=== PATIENT | male | born 1970 | race Caucasian/White ===

== ENCOUNTER 2017-05-13 02:43 | Emergency (ER) | payer OTHER ==
[2017-05-13] MEDS ORDERED: Nitrostat 0.4 MG (ED) SL ONE ×2 (02:56→03:01)
[2017-05-13] MEDS ORDERED: BABY ASPIRIN 81 MG CHEW PO ONE (02:56)
[2017-05-13] MEDS ORDERED: Ntg 0.2MG/Ml in D5W GLASS*** 250 ML IV PRN (02:56)
[2017-05-13] MEDS ORDERED: Sodium Chloride 0.9% 1000 ML 1,000 ML IV SCH (03:00)
--- NOTE | 2017-05-13 03:00 | ERPHSYRPT ---
- History of Present Illness Time Seen by Provider: 05/13/17 02:54 Historian: patient, family Exam Limitations: no limitations Patient Subjective Stated Complaint: Pt sts CP left side of chest radiating into throat with left arm numbness since 199. Sts that he has had "pressure" waxing and waning from 12/21 to 05/20. Sts diaphoresis and shortness of breath with pain. Sts vomiting x 1. Triage Nursing Assessment: Pt alert, oriented, answers all questions appropriately. Skin pale, sallow. Ambulatory to room. 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 Physician History: pt is 46 year old male with onset CP radiating to neck and left arm since 199 ; vomited x 1 prior suspected CAD but workup not completed yet; Timing/Duration: today Activities at Onset: none Location: substernal Chest Pain Radiation: neck, arm Severity of Pain-Max: moderate Severity of Pain-Current: moderate Modifying Factors: Improves With: nothing Nitro Today/Relief: 0.4 mg x 1, provided by ED Aspirin Treatment Today: 81 mg x 4, provided by ED Allergies/Adverse Reactions: Influenza Virus Vaccines Allergy (Verified 05/13/17 02:50) [place] nuts Allergy (Uncoded 05/13/17 02:50) Home Medications: Budesonide/Formoterol Fumarate [Symbicort 160-4.5 Mcg Inhaler] 10.2 gm IH BID [History] Fluticasone/Vilanterol [Breo Ellipta 100-25 Mcg INH] 1 each IH DAILY 02/22/17 [ History] Omeprazole [Prilosec] 40 mg PO DAILY 02/22/17 [History] Carbidopa/Levodopa [Carbidopa-Levo 25-100 Tab] 1 each PO TID 05/13/17 [History] Gabapentin 800 mg PO TID 05/13/17 [History] Hydrocodone Bit/Acetaminophen [[place] 5-325 Tablet] 1 each PO 05/13/17 [History] Tizanidine HCl 4 mg PO HS 05/13/17 [History] Zolpidem Tartrate [Ambien] 5 mg PO HS 05/13/17 [History] Zonisamide 100 mg PO BID 05/13/17 [History] Hx Tetanus, Diphtheria Vaccination/Date Given: Yes Hx Influenza Vaccination/Date Given: No Hx Pneumococcal Vaccination/Date Given: No - Review of Systems Constitutional: No Fever, No Chills Eyes: No Symptoms Ears, Nose, & Throat: No Symptoms Respiratory: No Cough, No Dyspnea Cardiac: Chest Pain, No Edema, No Syncope Abdominal/Gastrointestinal: Nausea, Vomiting, No Abdominal Pain, No Diarrhea Genitourinary Symptoms: No Dysuria Musculoskeletal: No Back Pain, No Neck Pain Skin: No Rash Neurological: No Dizziness, No Focal Weakness, No Sensory Changes Psychological: No Symptoms Endocrine: No Symptoms All Other Systems: Reviewed and Negative - Past Medical History Pertinent Past Medical History: No Neurological History: No Pertinent History ENT History: No Pertinent History Cardiac History: No Pertinent History Respiratory History: Bronchitis, Pneumonia Endocrine Medical History: No Pertinent History Musculoskeletal History: No Pertinent History GI Medical History: GERD History: No Pertinent History Psycho-Social History: No Pertinent History Male Reproductive Disorders: No Pertinent History - Past Surgical History Past Surgical History: No Other Surgical History: I and D's from cysts on posterior torso. - Social History Smoking Status: Current every day smoker How long have you smoked: 25 Exposure to second hand smoke: No Drug Use: none Patient Lives Alone: No - Nursing Vital Signs Nursing Vital Signs: Initial Vital Signs Pulse Rate 72 Respiratory Rate 18 Blood Pressure [Right Arm] 124/79 Pain Intensity 2 - Physical Exam General Appearance: moderate distress, alert Eye Exam: PERRL/EOMI, eyes nml inspection Ears, Nose, Throat Exam: normal ENT inspection, moist mucous membranes Neck Exam: normal inspection, non-tender, supple, full range of motion Respiratory Exam: normal breath sounds, lungs clear, No respiratory distress Cardiovascular Exam: regular rate/rhythm, normal heart sounds Gastrointestinal/Abdomen Exam: soft, No tenderness, No mass Back Exam: normal inspection, No CVA tenderness, No vertebral tenderness Extremity Exam: normal inspection, normal range of motion Neurologic Exam: alert, oriented x 3, cooperative, normal mood/affect, sensation nml, No motor deficits Skin Exam: normal color, warm, dry SpO2 Interpretation: normal SpO2: 96 Oxygen Delivery: Room Air - Course Nursing assessment & vital signs reviewed: Yes EKG Interpreted by Me: Sinus Rhythm, ST Elev - Progress Progress: improved Air Movement: good Progress Note: 05/13/17 03:12 pressure dropped to 60 and had to have IVF bolus NS x2 ; started dopamine and gave ASA and Effient 60 mg ; regional alert for STEMI ALS called hosp accepted at [facility] BP im,proved to 90 Blood Culture(s) Obtained: No Antibiotics given: No (dr coleman) Discussed with : Other Will see patient in: hospital (full admit) Counseled pt/family regarding: lab results, diagnosis, need for follow-up, rad results - Departure Time of Disposition: 03:21 Departure Disposition: Transfer Clinical Impression: STEMI (ST elevation myocardial infarction) Condition: Critical Critical Care Time: Yes Critical Care Time(excluding separately billable procedures): 30-74 minutes
[2017-05-13] MEDS ORDERED: Ntg 0.2MG/Ml in D5W GLASS*** 0 ML IV ONE (03:01)
[2017-05-13] MEDS ORDERED: Sodium Chloride 0.9% 1000 ML 1,000 ML ONE ×2 (03:01→03:09)
[2017-05-13] MEDS ORDERED: Sodium Chloride 0.9% 1000 ML 1,000 ML IV STA ×2 (03:03→03:07)
[2017-05-13] MEDS ORDERED: DOBUTREX 500 MG/D5W 250 ML 250 ML IV PRN (03:04)
[2017-05-13 03:05] LABS: BASOPHIL % 0.5 % (0.0-0.4); Eosinophil % 2.2 % (0.00-5.0); Granulocytes % 62.4 % (36.0-66.0); Lymphocytes % 27.8 % (24.0-44.0); Mean Cell Volume 87.6 fl (78-100); Mean Corpuscular Hemoglobin 30.3 pg (26-32); Mean Platelet Volume 9.4 fl (6-9.5); Monocytes % 7.1 % (0.0-12.0); Platelet Count 245 K/mm3 (150-450); Red Blood Count 5.47 M/mm3 (4.1-5.6); Red Cell Distribution Width 14.6 % (11.5-14.0); White Blood Count 15.6 K/mm3 (4.0-10.5)
[2017-05-13] MEDS ORDERED: Effient 10 MG TABLET PO ONE (03:07)
[2017-05-13] MEDS ORDERED: Effient 10 MG TABLET ONE (03:09)
[2017-05-13 03:22] LABS: INR 1.06 (0.8-3.0)
[2017-05-13] MEDS ORDERED: Zofran 4 MG/2 ML VIAL ONE (03:23)
[2017-05-13] MEDS ORDERED: Zofran 4 MG/2 ML VIAL IV ONE (03:23)
[2017-05-13 03:24] LABS: PTT 32.5 SECONDS (24.1-36.1)
[2017-05-13 03:26] LABS: ALBUMIN 3.9 g/dL (3.4-5.0); ALKALINE PHOSPHATASE 141 U/L (46-116); ANION GAP 13.5 MEQ/L (5-15); BLOOD UREA NITROGEN 7 mg/dL (9-20); CHLORIDE 101 mEq/L (98-107); Carbon Dioxide 26.3 mEq/L (21-32); Glucose 122 MG/DL (70-110); Potassium 3.1 mEq/L (3.5-5.1); SGOT/AST 20 U/L (15-37); SGPT/ALT 17 U/L (12-78); SODIUM 138 mEq/L (136-145); Total Protein 8.1 gm/dL (6.4-8.2)
[2017-05-13 03:27] VITALS: BP 103/76; PULSE 71; O2SAT 95
[2017-05-13] MEDS ORDERED: BABY ASPIRIN 81 MG CHEW ONE (04:05)
--- NOTE | 2017-05-13 09:06 | XRAY ---
Indication: Chest pain. Comparison: May 01, 2016. Portable chest remains clear. Heart and mediastinal structures within normal limits for AP portable technique. Bony thorax intact again with minimal degenerative changes. Impression: Stable nonacute chest.
== END 2017-05-13 03:26 | disposition short-term general hospital (02) ==
LOC: ED 02:43
DX: I21.3 ST elevation (STEMI) myocardial infarction of unspecified site (principal); R07.9 Chest pain, unspecified; R11.10 Vomiting, unspecified
CPT/HCPCS: 36000; 36415; 71010; 80053; 82550; 83880; 84484; 85025; 85610; 85730; 93005; 93041; 96360; 96365; 96374; 99285; J2405; A9270-GY

== ENCOUNTER 2018-10-08 12:53 | Day surgery (SDC) | payer OTHER ==
[2018-10-08] MEDS ORDERED: Marcaine 0.5% SDV 10 ML IJ ONE (12:54)
[2018-10-08] MEDS ORDERED: Xylocaine 1% Vial 30 ML PF IJ ONE (12:54)
[2018-10-08] MEDS ORDERED: Depo-Medrol 40 MG/ML IM ONE (12:54)
--- NOTE | 2018-10-08 16:04 | XRAY ---
7 seconds fluoroscopy time in surgery for left knee injection.
--- NOTE | 2018-10-08 16:04 | XRAY ---
17 seconds fluoroscopy time in surgery for right knee injection.
--- NOTE | 2018-10-09 05:04 | XRAY ---
Exam: C-arm images of the right knee for therapeutic injection. Findings: 17 seconds of intraoperative fluoroscopy time was utilized. 3 frontal C-arm images of the right knee were obtained. A needle is seen projected toward the mid aspect of the right knee joint. Some contrast has been injected. Correlate with therapeutic procedure.
--- NOTE | 2018-10-09 05:06 | XRAY ---
Exam: C-arm images of the left knee for therapeutic injection. Findings: 7 seconds of intraoperative fluoroscopy time was utilized. 2 frontal C-arm images of the left knee were obtained. A spinal needle is seen directed toward the mid aspect of the left knee joint. Some contrast media has been injected. Correlate with therapeutic procedure.
== END 2018-10-08 15:20 | disposition home or self-care (01) ==
LOC: SDC-PAIN 12:53
PROVIDERS: ATTEND Psychiatry & Neurology Pain Medicine
DX: M17.0 Bilateral primary osteoarthritis of knee (principal)
CPT/HCPCS: 20610; 73560; 77002; J1030; J2001; Q9967

== ENCOUNTER 2021-05-27 14:46 | Emergency (ER) | payer MEDICARE ==
[2021-05-27] MEDS ORDERED: Zofran 4 MG/2 ML VIAL IV ONE (15:09)
[2021-05-27] MEDS ORDERED: Nitrostat 0.4 MG (ED) SL ONE (15:09)
[2021-05-27] MEDS ORDERED: BABY ASPIRIN 81 MG CHEW PO ONE (15:09)
[2021-05-27] MEDS ORDERED: Zofran 4 MG/2 ML VIAL ONE (15:14)
--- NOTE | 2021-05-27 15:22 | ERPHSYRPT ---
- History of Present Illness Time Seen by Provider: 05/27/21 15:05 Historian: patient, family Patient Subjective Stated Complaint: chest pain onset Triage Nursing Assessment: pt to ED c/o CP onset . pt states his grandson came from school with [place] last week and he and his have both felt bad since then. pt states chest pain and SOB have been intermittent since then. 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 heart sounds clear. lung sounds crackles at bases bilaterally. Physician History: This is a 50-year-old white male patient of Dr. 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 Today he felt as though his lungs were being squeezed. There has been flulike symptoms in the family home this past week. Patient sees Dr. Macario for chronic pain issues. Patient did take a 10/25 [place] because of his chest pain earlier today and he presents with chest pain rated 3 out of 10. Patient has a history of coronary artery disease and had an acute myocardial infarction approximately 4 years ago. Patient continues to smoke. He gets recurrent bronchitis. He does not wear home oxygen. Timing/Duration: day(s) (2) Activities at Onset: activity Quality: sharpness, stabbing Location: substernal Chest Pain Radiation: no radiation Severity of Pain-Max: moderate Severity of Pain-Current: mild Modifying Factors: Improves With: nothing Associated Symptoms: shortness of breath, cough Nitro Today/Relief: no nitro taken today Aspirin Treatment Today: 81 mg x 4, provided by ED Allergies/Adverse Reactions: Influenza Virus Vaccines Allergy (Verified 05/27/21 15:01) [place] nuts Allergy (Uncoded 05/27/21 15:01) Home Medications: Budesonide/Formoterol Fumarate [Symbicort 160-4.5 Mcg Inhaler] 10.2 gm IH BID 02/22/17 [History] Fluticasone/Vilanterol [Breo Ellipta 100-25 Mcg INH] 1 each IH DAILY 02/22/17 [History] Omeprazole [Prilosec] 40 mg PO DAILY 02/22/17 [History] Carbidopa/Levodopa [Carbidopa-Levo 25-100 Tab] 1 each PO QID 05/13/17 [History] Gabapentin 800 mg PO TID 05/13/17 [History] Hydrocodone Bit/Acetaminophen [[place] 5-325 Tablet] 1 each PO Q6HPRN PRN 05/13/17 [History] Tizanidine HCl 4 mg PO HS 05/13/17 [History] Zolpidem Tartrate [Ambien] 5 mg PO HS 05/13/17 [History] Zonisamide 150 mg PO BID 05/13/17 [History] Aspirin 81 mg PO DAILY 07/29/17 [History] Atorvastatin Calcium 80 mg PO DAILY 07/29/17 [History] Carvedilol 3.125 mg [Coreg 3.125 MG] 3.125 mg PO BID 07/29/17 [History] Ticagrelor [Brilinta] 90 mg PO BID 07/29/17 [History] Hx Tetanus, Diphtheria Vaccination/Date Given: Yes Hx Influenza Vaccination/Date Given: No Hx Pneumococcal Vaccination/Date Given: No Immunizations Up to Date: No Travel Risk - International Travel Have you traveled outside of the country in past 3 weeks: No - Coronavirus Screening Are you exhibiting any of the following symptoms?: Yes Symptoms: Cough: New Onset, Vomiting/Diarrhea Close contact with a COVID-19 positive Pt in past 14-21 Days: No - Vaccine Status Have you recieved a Covid-19 vaccination: No - Review of Systems Constitutional: Weakness (Mild) Eyes: No Symptoms Ears, Nose, & Throat: No Symptoms Respiratory: Cough, Dyspnea (Mild) Cardiac: Chest Pain Abdominal/Gastrointestinal: No Symptoms Genitourinary Symptoms: No Symptoms Musculoskeletal: No Symptoms Skin: No Symptoms Neurological: No Symptoms Psychological: No Symptoms Endocrine: No Symptoms Hematologic/Lymphatic: No Symptoms Immunological/Allergic: No Symptoms All Other Systems: Reviewed and Negative - Past Medical History Pertinent Past Medical History: Yes Neurological History: No Pertinent History ENT History: No Pertinent History Cardiac History: Myocardial Infarction (MA) Respiratory History: No Pertinent History Endocrine Medical History: No Pertinent History Musculoskeletal History: Arthritis, Fibromyalgia GI Medical History: GERD History: No Pertinent History Psycho-Social History: No Pertinent History Male Reproductive Disorders: No Pertinent History - Past Surgical History Past Surgical History: No Other Surgical History: I and D's from cysts on posterior torso. - Social History Smoking Status: Current every day smoker How long have you smoked: 25 Exposure to second hand smoke: No Drug Use: none Patient Lives Alone: No - Nursing Vital Signs Nursing Vital Signs: Initial Vital Signs Temperature 97.8 F 05/27/21 14:52 Pulse Rate 80 05/27/21 14:52 Respiratory Rate 16 05/27/21 14:52 Blood Pressure 148/91 05/27/21 14:52 O2 Sat by Pulse Oximetry 95 05/27/21 14:52 Pain Scale Pain Intensity 3 - Physical Exam General Appearance: no apparent distress, alert, anxiety Eye Exam: PERRL/EOMI, eyes nml inspection Ears, Nose, Throat Exam: normal ENT inspection, moist mucous membranes Neck Exam: normal inspection, non-tender, supple, full range of motion Respiratory Exam: normal breath sounds, chest tenderness, lungs clear, airway intact, No respiratory distress Cardiovascular Exam: regular rate/rhythm, normal heart sounds, normal peripheral pulses Gastrointestinal/Abdomen Exam: soft, normal bowel sounds, No tenderness Rectal Exam: not done Back Exam: normal inspection, normal range of motion, No CVA tenderness, No vertebral tenderness Extremity Exam: normal inspection, normal range of motion, pelvis stable Neurologic Exam: alert, oriented x 3, cooperative, box strapper II-XII nml as tested, normal mood/affect, nml cerebellar function, nml station & gait, sensation nml Skin Exam: warm, dry, diaphoresis, pale Lymphatic Exam: No adenopathy SpO2 Interpretation: borderline oxygenation SpO2: 95 O2 Delivery: Room Air - Course Nursing assessment & vital signs reviewed: Yes EKG Interpreted by Me: RATE (87), Sinus Rhythm, NORMAL AXIS, NORMAL INTERVALS, NORMAL QRS, NORMAL ST-T, Other (There is no acute ischemic change on this EKG. The comparison EKG on 05/13/2017 shows a STEMI. However, today's EKG shows no evidence of any acute ischemic changes.) Ordered Tests: Active Orders 24 hr Category Date Time Status Tube Puller STAT Care 05/27/21 15:10 Active EKG-ER Only STAT Care 05/27/21 15:09 Active IV Insertion STAT Care 05/27/21 15:09 Active CHEST 1 VIEW (PORTABLE) Stat Exams 05/27/21 15:10 Taken CBC W DIFF Stat Lab 05/27/21 14:50 Completed CMP Stat Lab 05/27/21 14:50 Completed D-DIMER QUANTITATIVE Stat Lab 05/27/21 14:50 Completed NT PRO BNP Stat Lab 05/27/21 14:50 Completed PROTIME WITH INR Stat Lab 05/27/21 14:50 Completed TROPONIN Q3H Lab 05/27/21 14:50 Completed TROPONIN Q3H Lab 05/27/21 17:50 Completed TROPONIN Q3H Lab 05/27/21 21:15 Ordered TROPONIN Q3H Lab 05/28/21 00:15 Ordered TROPONIN Q3H Lab 05/28/21 03:15 Ordered Medication Summary Generic Name Dose Route Start Last Admin Trade Name Freq PRN Reason Stop Dose Admin Ceftriaxone Sodium/Dextrose 1 g in 50 mls @ 100 mls/hr 05/27/21 18:08 Rocephin 1 Gm-D5w 50 Ml Bag IV 05/27/21 18:37 STAT STA Discontinued Medications Generic Name Dose Route Start Last Admin Trade Name Freq PRN Reason Stop Dose Admin Aspirin 324 mg 05/27/21 15:09 05/27/21 15:13 Baby Aspirin 81 Mg Chew PO 05/27/21 15:10 324 mg STAT ONE Administration Methylprednisolone Sodium 0 mg 05/27/21 18:08 Succinate 125 mg/ Sterile IV 05/27/21 18:09 Water 2 ml STAT ONE Ceftriaxone Sodium/Dextrose Confirm 05/27/21 18:17 Rocephin 1 Gm-D5w 50 Ml Bag Administered 05/27/21 18:18 Dose 1 g in 50 mls @ ud IV .STK-MED ONE Methylprednisolone Sodium Succinate Confirm 05/27/21 18:16 Solu-Medrol Administered 05/27/21 18:17 Dose 125 mg .ROUTE .STK-MED ONE Nitroglycerin 0.4 mg 05/27/21 15:09 05/27/21 15:13 Nitrostat 0.4 Mg (Ed) SL 05/27/21 15:10 0.4 mg STAT ONE Administration Ondansetron HCl 4 mg 05/27/21 15:09 05/27/21 15:15 Zofran 4 Mg/2 Ml Vial IV 05/27/21 15:10 4 mg STAT ONE Administration Ondansetron HCl Confirm 05/27/21 15:14 Zofran 4 Mg/2 Ml Vial Administered 05/27/21 15:15 Dose 4 mg .ROUTE .STK-MED ONE Sterile Water Confirm 05/27/21 18:17 Sterile H2o 10 Ml Administered 05/27/21 18:18 Dose 10 ml IJ .STK-MED ONE Lab/Rad Data: Laboratory Result Diagrams 05/27/21 14:50 05/27/21 14:50 Laboratory Results 05/27/21 05/27/21 05/27/21 Range/Units 17:50 14:50 14:50 WBC (4.0-10.5) K/mm3 RBC (4.1-5.6) M/mm3 Hgb (12.5-18.0) gm/dl Hct (42-50) % MCV (78-100) fl MCH (26-32) pg MCHC (32-36) g/dl RDW (11.5-14.0) % Plt Count (150-450) K/mm3 MPV (7.5-11.0) fl Gran % (36.0-66.0) % Eos # (Auto) (0-0.5) Absolute Lymphs (auto) (1.0-4.6) Absolute Monos (auto) (0.0-1.3) Lymphocytes % (24.0-44.0) % Monocytes % (0.0-12.0) % Eosinophils % (0.00-5.0) % Basophils % (0.0-0.4) % Absolute Granulocytes (1.4-6.9) Basophils # (0-0.4) PT 12.7 H (9.4-12.5) SECONDS INR 1.08 (0.8-3.0) D-Dimer 439 (215-500) ng/mL Sodium (137-145) mmol/L Potassium (3.5-5.1) mmol/L Chloride (98-107) mmol/L Carbon Dioxide (22-30) mmol/L Anion Gap (5-15) MEQ/L BUN (9-20) mg/dL Creatinine (0.66-1.25) mg/dL Estimated GFR ML/MIN Glucose (74-106) mg/dL Calcium (8.4-10.2) mg/dL Total Bilirubin (0.2-1.3) mg/dL AST (17-59) U/L ALT (0-50) U/L Alkaline Phosphatase (38-126) U/L Troponin I < 0.012 < 0.012 (0.000-0.034) ng/mL NT-Pro-B Natriuret Pep (0-900) pg/mL Serum Total Protein (6.3-8.2) g/dL Albumin (3.5-5.0) g/dL 05/27/21 05/27/21 Range/Units 14:50 14:50 WBC 8.7 (4.0-10.5) K/mm3 RBC 5.16 (4.1-5.6) M/mm3 Hgb 15.5 (12.5-18.0) gm/dl Hct 46.0 (42-50) % MCV 89.1 (78-100) fl MCH 30.0 (26-32) pg MCHC 33.7 (32-36) g/dl RDW 14.5 H (11.5-14.0) % Plt Count 216 (150-450) K/mm3 MPV 9.6 (7.5-11.0) fl Gran % 66.5 H (36.0-66.0) % Eos # (Auto) 0.39 (0-0.5) Absolute Lymphs (auto) 1.38 (1.0-4.6) Absolute Monos (auto) 1.09 (0.0-1.3) Lymphocytes % 15.9 L (24.0-44.0) % Monocytes % 12.6 H (0.0-12.0) % Eosinophils % 4.5 (0.00-5.0) % Basophils % 0.5 (0.0-0.4) % Absolute Granulocytes 5.78 (1.4-6.9) Basophils # 0.04 (0-0.4) PT (9.4-12.5) SECONDS INR (0.8-3.0) D-Dimer (215-500) ng/mL Sodium 137 (137-145) mmol/L Potassium 3.4 L (3.5-5.1) mmol/L Chloride 100 (98-107) mmol/L Carbon Dioxide 26 (22-30) mmol/L Anion Gap 14.5 (5-15) MEQ/L BUN 3 L (9-20) mg/dL Creatinine 0.83 (0.66-1.25) mg/dL Estimated GFR > 60.0 ML/MIN Glucose 104 (74-106) mg/dL Calcium 9.0 (8.4-10.2) mg/dL Total Bilirubin 0.30 (0.2-1.3) mg/dL AST 36 (17-59) U/L ALT 19 (0-50) U/L Alkaline Phosphatase 145 H (38-126) U/L Troponin I (0.000-0.034) ng/mL NT-Pro-B Natriuret Pep 224 (0-900) pg/mL Serum Total Protein 7.7 (6.3-8.2) g/dL Albumin 4.3 (3.5-5.0) g/dL - Progress Progress: improved, re-examined Air Movement: good Progress Note: 05/27/21 18:10 Chest x-ray? Perihilar early infiltrate left side when compared to chest x-ray dated 05/13/2017 Antibiotics given: Yes Counseled pt/family regarding: lab results, diagnosis, need for follow-up, rad results - Departure Departure Disposition: Home Clinical Impression: Upper respiratory infection Condition: Stable Critical Care Time: No Referrals: BARRINGTON CARR MD [Primary Care Provider] - Additional Instructions: Stop smoking. Take your medication as prescribed. Follow-up with your primary care physician for persistent symptoms. Prescriptions: Albuterol 8 gm Mdi Hfa [Ventolin Hfa MDI] 8 gm IH Q4H #1 [email or web address] Azithromycin 250 mg [Zithromax 250 MG TABLET] 250 mg PO ZPACK #6 tablet
[2021-05-27 15:25] LABS: Absolute Neutrophil Ct (ANC) 5.78 (1.4-6.9); BASOPHIL % 0.5 % (0.0-0.4); Basophil (Absolute #) 0.04 (0-0.4); Eosinophil % 4.5 % (0.00-5.0); Eosinophil (Absolute #) 0.39 (0-0.5); Hemoglobin 15.5 gm/dl (12.5-18.0); INR 1.08 (0.8-3.0); Lymphocyte (Absolute #) 1.38 (1.0-4.6); Lymphocytes % 15.9 % (24.0-44.0); Mean Cell Volume 89.1 fl (78-100); Mean Corpuscular Hgb Concent. 33.7 g/dl (32-36); Mean Platelet Volume 9.6 fl (7.5-11.0); Monocyte (Absolute #) 1.09 (0.0-1.3); Monocytes % 12.6 % (0.0-12.0); Neutrophil % 66.5 % (36.0-66.0); PROTIME 12.7 SECONDS (9.4-12.5); Platelet Count 216 K/mm3 (150-450); Red Blood Count 5.16 M/mm3 (4.1-5.6); Red Cell Distribution Width 14.5 % (11.5-14.0); White Blood Count 8.7 K/mm3 (4.0-10.5)
[2021-05-27 15:44] LABS: ALBUMIN 4.3 g/dL (3.5-5.0); ALKALINE PHOSPHATASE 145 U/L (38-126); ANION GAP 14.5 MEQ/L (5-15); BLOOD UREA NITROGEN 3 mg/dL (9-20); CHLORIDE 100 mmol/L (98-107); Carbon Dioxide 26 mmol/L (22-30); Creatinine 1 0.83 mg/dL (0.66-1.25); EST GLOMERULAR FILTRATION RATE > 60.0 ML/MIN; Glucose 104 mg/dL (74-106); NT PRO BNP 224 pg/mL (0-900); Potassium 3.4 mmol/L (3.5-5.1); SGOT/AST 36 U/L (17-59); SGPT/ALT 19 U/L (0-50); SODIUM 137 mmol/L (137-145); Total Protein 7.7 g/dL (6.3-8.2)
[2021-05-27] MEDS ORDERED: ROCEPHIN 1 Gm-D5w 50 ml Bag** 1 G/50 ML IVPB IV STA (18:08)
[2021-05-27] MEDS ORDERED: solu-MEDROL 125 MG, Sterile H2O 10 ml 2 ML IV ONE ×2 (18:08)
[2021-05-27] MEDS ORDERED: solu-MEDROL ONE (18:16)
[2021-05-27] MEDS ORDERED: ROCEPHIN 1 Gm-D5w 50 ml Bag** 1 G/50 ML IVPB IV ONE (18:17)
[2021-05-27] MEDS ORDERED: Sterile H2O 10 ml IJ ONE (18:17)
[2021-05-27 19:07] VITALS: BP 129/82; PULSE 78; O2SAT 94
--- NOTE | 2021-05-27 19:18 | XRAY ---
Indication: Chest pain. Comparison: May 17, 2017. Portable chest remains clear. Heart and mediastinal structures within normal limits. Bony thorax intact again with mild degenerative changes. Impression: Nonacute chest.
== END 2021-05-27 19:07 | disposition home or self-care (01) ==
LOC: ED 14:46
DX: J06.9 Acute upper respiratory infection, unspecified (principal)
CPT/HCPCS: 36000; 36415; 71045; 80053; 83880; 84484; 85025; 85379; 85610; 93005; 93041; 96374; 99284; J0696; J2405; J2930; A9270-GY

== ENCOUNTER 2021-09-04 16:25 | Emergency (ER) | payer MEDICARE ==
--- NOTE | 2021-09-04 16:28 | ERPHSYRPT ---
- History of Present Illness Time Seen by Provider: 09/04/21 16:28 Historian: patient Exam Limitations: no limitations Physician History: This is a 50-year-old white male patient of Dr. Sterling who has chronic pain issues and sees a pain specialist and presents with centrally located, nonradiating chest pressure. Patient does have a history of elevated cholesterol, coronary disease, myocardial infarction, hypertension, gastroesophageal reflux disease, recurrent bronchitis, he continues to smoke. He is on Brilinta anticoagulation therapy. His systems support engineer is Dr. Lobo and he has not seen him in quite some time. Patient states that this chest pressure is different than the symptoms of his myocardial infarction in the past. Timing/Duration: yesterday Activities at Onset: none Quality: pressure Location: substernal, central Chest Pain Radiation: no radiation Severity of Pain-Max: mild (To moderate) Severity of Pain-Current: mild Modifying Factors: Improves With: nothing Nitro Today/Relief: no nitro taken today Aspirin Treatment Today: 81 mg x 1, provided at home Allergies/Adverse Reactions: Influenza Virus Vaccines Allergy (Verified 09/04/21 16:34) [place] nuts Allergy (Uncoded 09/04/21 16:34) Home Medications: Budesonide/Formoterol Fumarate [Symbicort 160-4.5 Mcg Inhaler] 10.2 gm IH BID 02/22/17 [History] Fluticasone/Vilanterol [Breo Ellipta 100-25 Mcg INH] 1 each IH DAILY 02/22/17 [History] Omeprazole [Prilosec] 40 mg PO DAILY 02/22/17 [History] Carbidopa/Levodopa [Carbidopa-Levo 25-100 Tab] 1 each PO QID 05/13/17 [History] Gabapentin 800 mg PO TID 05/13/17 [History] Hydrocodone Bit/Acetaminophen [[place] 5-325 Tablet] 1 each PO Q6HPRN PRN 05/13/17 [History] Tizanidine HCl 4 mg PO HS 05/13/17 [History] Zolpidem Tartrate [Ambien] 5 mg PO HS 05/13/17 [History] Zonisamide 150 mg PO BID 05/13/17 [History] Aspirin 81 mg PO DAILY 07/29/17 [History] Atorvastatin Calcium 80 mg PO DAILY 07/29/17 [History] Carvedilol 3.125 mg [Coreg 3.125 MG] 3.125 mg PO BID 07/29/17 [History] Ticagrelor [Brilinta] 90 mg PO BID 07/29/17 [History] Hx Tetanus, Diphtheria Vaccination/Date Given: Yes Hx Influenza Vaccination/Date Given: No Hx Pneumococcal Vaccination/Date Given: No Travel Risk - International Travel Have you traveled outside of the country in past 3 weeks: No - Coronavirus Screening Are you exhibiting any of the following symptoms?: No Close contact with a COVID-19 positive Pt in past 14-21 Days: No - Vaccine Status Have you recieved a Covid-19 vaccination: No - Review of Systems Constitutional: No Symptoms Eyes: No Symptoms Ears, Nose, & Throat: No Symptoms Respiratory: No Symptoms Cardiac: Chest Pain Abdominal/Gastrointestinal: No Symptoms Genitourinary Symptoms: No Symptoms Musculoskeletal: No Symptoms Skin: No Symptoms Neurological: No Symptoms Psychological: No Symptoms Endocrine: No Symptoms Hematologic/Lymphatic: No Symptoms Immunological/Allergic: No Symptoms - Past Medical History Pertinent Past Medical History: Yes Neurological History: No Pertinent History ENT History: No Pertinent History Cardiac History: Myocardial Infarction ([place]) Respiratory History: No Pertinent History Endocrine Medical History: No Pertinent History Musculoskeletal History: Arthritis, Fibromyalgia GI Medical History: GERD History: No Pertinent History Psycho-Social History: No Pertinent History Male Reproductive Disorders: No Pertinent History - Past Surgical History Past Surgical History: No Other Surgical History: I and D's from cysts on posterior torso. - Social History Smoking Status: Current every day smoker How long have you smoked: 25 Exposure to second hand smoke: No Drug Use: none Patient Lives Alone: No - Nursing Vital Signs Nursing Vital Signs: Initial Vital Signs Temperature 97.7 F 09/04/21 16:26 Pulse Rate 82 09/04/21 16:26 Respiratory Rate 17 09/04/21 16:26 Blood Pressure 131/89 09/04/21 16:26 O2 Sat by Pulse Oximetry 98 09/04/21 16:26 Pain Scale Pain Intensity 1 - Physical Exam General Appearance: no apparent distress, alert, anxiety Eye Exam: PERRL/EOMI, eyes nml inspection Ears, Nose, Throat Exam: normal ENT inspection, moist mucous membranes Neck Exam: normal inspection, non-tender, supple, full range of motion Respiratory Exam: normal breath sounds, chest tenderness, lungs clear, airway intact, No respiratory distress Cardiovascular Exam: regular rate/rhythm, normal heart sounds, normal peripheral pulses Gastrointestinal/Abdomen Exam: soft, normal bowel sounds, No tenderness Rectal Exam: not done Back Exam: normal inspection, normal range of motion, No CVA tenderness Extremity Exam: normal inspection, normal range of motion, pelvis stable Neurologic Exam: alert, oriented x 3, cooperative, court usher II-XII nml as tested, normal mood/affect, nml cerebellar function, nml station & gait, sensation nml Skin Exam: normal color, warm, dry Lymphatic Exam: No adenopathy SpO2 Interpretation: normal O2 Delivery: Room Air - Course Nursing assessment & vital signs reviewed: Yes EKG Interpreted by Me: RATE (80), Sinus Rhythm, NORMAL AXIS, NORMAL INTERVALS, NORMAL QRS, NORMAL ST-T, Other (No acute ischemic changes. No change from the comparison EKG dated 05/27/2021) Ordered Tests: Active Orders 24 hr Category Date Time Status Light Armored Vehicle Officer STAT Care 09/04/21 16:36 Active EKG-ER Only STAT Care 09/04/21 16:35 Active IV Insertion STAT Care 09/04/21 16:35 Active Pulse Oximetry (ED) STAT Care 09/04/21 16:35 Active CHEST 1 VIEW (PORTABLE) Stat Exams 09/04/21 16:36 Completed CBC W DIFF Stat Lab 09/04/21 16:30 Completed CMP Stat Lab 09/04/21 16:30 Completed D-DIMER QUANTITATIVE Stat Lab 09/04/21 16:30 Completed NT PRO BNP Stat Lab 09/04/21 16:30 Completed PROTIME WITH INR Stat Lab 09/04/21 16:30 Completed TROPONIN Q3H Lab 09/04/21 16:30 Completed TROPONIN Q3H Lab 09/04/21 19:15 Completed TROPONIN Q3H Lab 09/04/21 22:45 Ordered TROPONIN Q3H Lab 09/05/21 01:45 Ordered TROPONIN Q3H Lab 09/05/21 04:45 Ordered Medication Summary Discontinued Medications Generic Name Dose Route Start Last Admin Trade Name Freq PRN Reason Stop Dose Admin Aspirin 324 mg 09/04/21 16:35 09/04/21 16:43 Aspirin 81 Mg Tab.Chew PO 09/04/21 16:36 324 mg STAT ONE Administration Morphine Sulfate 4 mg 09/04/21 17:42 09/04/21 17:45 Morphine Sulfate 4 Mg/Ml Injection IV 09/04/21 17:43 4 mg STAT ONE Administration Morphine Sulfate Confirm 09/04/21 17:43 Morphine Sulfate 4 Mg/Ml Injection Administered 09/04/21 17:44 Dose 4 mg .ROUTE .STK-MED ONE Ondansetron HCl 4 mg 09/04/21 17:42 09/04/21 17:45 Ondansetron Hcl 4 Mg/2 Ml Vial IV 09/04/21 17:43 4 mg STAT ONE Administration Ondansetron HCl Confirm 09/04/21 17:43 Ondansetron Hcl 4 Mg/2 Ml Vial Administered 09/04/21 17:44 Dose 4 mg .ROUTE .STK-MED ONE Lab/Rad Data: Laboratory Result Diagrams 09/04/21 16:30 09/04/21 16:30 Laboratory Results 09/04/21 09/04/21 09/04/21 Range/Units 19:15 16:30 16:30 WBC (4.0-10.5) K/mm3 RBC (4.1-5.6) M/mm3 Hgb (12.5-18.0) gm/dl Hct (42-50) % MCV (78-100) fl MCH (26-32) pg MCHC (32-36) g/dl RDW (11.5-14.0) % Plt Count (150-450) K/mm3 MPV (7.5-11.0) fl Gran % (36.0-66.0) % Eos # (Auto) (0-0.5) Absolute Lymphs (auto) (1.0-4.6) Absolute Monos (auto) (0.0-1.3) Lymphocytes % (24.0-44.0) % Monocytes % (0.0-12.0) % Eosinophils % (0.00-5.0) % Basophils % (0.0-0.4) % Absolute Granulocytes (1.4-6.9) Basophils # (0-0.4) PT 11.7 (9.4-12.5) SECONDS INR 0.99 (0.8-3.0) D-Dimer 306 (215-500) ng/mL Sodium (137-145) mmol/L Potassium (3.5-5.1) mmol/L Chloride (98-107) mmol/L Carbon Dioxide (22-30) mmol/L Anion Gap (5-15) MEQ/L BUN (9-20) mg/dL Creatinine (0.66-1.25) mg/dL Estimated GFR ML/MIN Glucose (74-106) mg/dL Calcium (8.4-10.2) mg/dL Total Bilirubin (0.2-1.3) mg/dL AST (17-59) U/L ALT (0-50) U/L Alkaline Phosphatase (38-126) U/L Troponin I < 0.012 < 0.012 (0.000-0.034) ng/mL NT-Pro-B Natriuret Pep (0-900) pg/mL Serum Total Protein (6.3-8.2) g/dL Albumin (3.5-5.0) g/dL 09/04/21 09/04/21 Range/Units 16:30 16:30 WBC 9.0 (4.0-10.5) K/mm3 RBC 4.98 (4.1-5.6) M/mm3 Hgb 15.2 (12.5-18.0) gm/dl Hct 46.0 (42-50) % MCV 92.4 (78-100) fl MCH 30.5 (26-32) pg MCHC 33.0 (32-36) g/dl RDW 14.6 H (11.5-14.0) % Plt Count 248 (150-450) K/mm3 MPV 9.3 (7.5-11.0) fl Gran % 58.0 (36.0-66.0) % Eos # (Auto) 0.25 (0-0.5) Absolute Lymphs (auto) 2.76 (1.0-4.6) Absolute Monos (auto) 0.74 (0.0-1.3) Lymphocytes % 30.6 (24.0-44.0) % Monocytes % 8.2 (0.0-12.0) % Eosinophils % 2.8 (0.00-5.0) % Basophils % 0.4 (0.0-0.4) % Absolute Granulocytes 5.23 (1.4-6.9) Basophils # 0.04 (0-0.4) PT (9.4-12.5) SECONDS INR (0.8-3.0) D-Dimer (215-500) ng/mL Sodium 136 L (137-145) mmol/L Potassium 4.2 (3.5-5.1) mmol/L Chloride 103 (98-107) mmol/L Carbon Dioxide 24 (22-30) mmol/L Anion Gap 13.7 (5-15) MEQ/L BUN 6 L (9-20) mg/dL Creatinine 0.79 (0.66-1.25) mg/dL Estimated GFR > 60.0 ML/MIN Glucose 100 (74-106) mg/dL Calcium 9.0 (8.4-10.2) mg/dL Total Bilirubin 0.70 (0.2-1.3) mg/dL AST 41 (17-59) U/L ALT 17 (0-50) U/L Alkaline Phosphatase 98 (38-126) U/L Troponin I (0.000-0.034) ng/mL NT-Pro-B Natriuret Pep 95.9 (0-900) pg/mL Serum Total Protein 7.4 (6.3-8.2) g/dL Albumin 4.0 (3.5-5.0) g/dL - Progress Progress: improved, re-examined Air Movement: good Progress Note: 09/04/21 17:00 Chest x-ray shows chronic degenerative changes. No acute cardiopulmonary processes 09/04/21 18:34 Patient denies chest pain Blood Culture(s) Obtained: No Antibiotics given: No Counseled pt/family regarding: lab results, diagnosis, need for follow-up, rad results - Departure Departure Disposition: Home Clinical Impression: Non-cardiac chest pain Condition: Stable Critical Care Time: No Referrals: BARRINGTON AYERS MD [Primary Care Provider] - Additional Instructions: Follow-up with your primary care physician and systems support engineer tomorrow by phone to make arrangements for follow-up appointment.
[2021-09-04] MEDS: BABY ASPIRIN 81 MG CHEW PO ONE (16:43)
[2021-09-04 16:52] LABS: Absolute Neutrophil Ct (ANC) 5.23 (1.4-6.9); BASOPHIL % 0.4 % (0.0-0.4); Basophil (Absolute #) 0.04 (0-0.4); Eosinophil % 2.8 % (0.00-5.0); Eosinophil (Absolute #) 0.25 (0-0.5); Hemoglobin 15.2 gm/dl (12.5-18.0); Lymphocyte (Absolute #) 2.76 (1.0-4.6); Lymphocytes % 30.6 % (24.0-44.0); Mean Cell Volume 92.4 fl (78-100); Mean Corpuscular Hemoglobin 30.5 pg (26-32); Mean Platelet Volume 9.3 fl (7.5-11.0); Monocyte (Absolute #) 0.74 (0.0-1.3); Monocytes % 8.2 % (0.0-12.0); Platelet Count 248 K/mm3 (150-450); Red Blood Count 4.98 M/mm3 (4.1-5.6); Red Cell Distribution Width 14.6 % (11.5-14.0)
--- NOTE | 2021-09-04 16:57 | XRAY ---
Indication: Chest pain and short of breath. Comparison: May 27, 2021. Portable chest remains clear. Heart not enlarged. Bony thorax intact again with mild degenerative changes. No new/acute findings.
[2021-09-04 16:58] LABS: INR 0.99 (0.8-3.0); PROTIME 11.7 SECONDS (9.4-12.5)
[2021-09-04 17:12] LABS: ALKALINE PHOSPHATASE 98 U/L (38-126); ANION GAP 13.7 MEQ/L (5-15); BLOOD UREA NITROGEN 6 mg/dL (9-20); CHLORIDE 103 mmol/L (98-107); Carbon Dioxide 24 mmol/L (22-30); Creatinine 1 0.79 mg/dL (0.66-1.25); EST GLOMERULAR FILTRATION RATE > 60.0 ML/MIN; Glucose 100 mg/dL (74-106); NT PRO BNP 95.9 pg/mL (0-900); Potassium 4.2 mmol/L (3.5-5.1); SGOT/AST 41 U/L (17-59); SGPT/ALT 17 U/L (0-50); SODIUM 136 mmol/L (137-145); Total Protein 7.4 g/dL (6.3-8.2)
[2021-09-04] MEDS ORDERED: MORPHINE SULFATE 4 MG INJ ONE (17:43)
[2021-09-04] MEDS ORDERED: Zofran 4 MG/2 ML VIAL ONE (17:43)
[2021-09-04] MEDS: Zofran 4 MG/2 ML VIAL IV ONE (17:45)
[2021-09-04] MEDS: MORPHINE SULFATE 4 MG INJ IV ONE (17:45)
[2021-09-04 19:26] VITALS: PULSE 68
[2021-09-04 19:54] VITALS: BP 137/89; O2SAT 97
== END 2021-09-04 19:59 | disposition home or self-care (01) ==
LOC: ED 16:25
DX: R07.89 Other chest pain (principal)
CPT/HCPCS: 36000; 36415; 71045; 80053; 83880; 84484; 85025; 85379; 85610; 93005; 93041; 94760; 96374; 96375; 99284; J2270; J2405; A9270-GY

== ENCOUNTER 2021-09-23 23:08 | Emergency (ER) | payer MEDICARE ==
[2021-09-23] MEDS ORDERED: DUONEB 0.5-3 MG/3 ml Neb IH ONE ×2 (23:35→23:44)
[2021-09-23] MEDS ORDERED: MORPHINE SULFATE 2 MG INJ IM ONE (23:35)
--- NOTE | 2021-09-23 23:45 | ERPHSYRPT ---
- History of Present Illness Time Seen by Provider: 09/23/21 23:43 Source: patient Exam Limitations: no limitations Patient Subjective Stated Complaint: pt states "I can't breath." Triage Nursing Assessment: pt ambulated into the er; pt is axo x4; c/o SOB; pt c/o chest pressure; pt states "I have trouble catching my breath"; posterior RUL expiratory wheezing; clear heart tone apical; strong jo ann radial pulses; strong jo ann pedal pulses; pt c/o yellow/ green sputum; O2 99 % on room air; no edema present; hyperactive bowel sounds in all quads; vitals wnl Physician History: Patient is 50-year-old male with significant past medical history of COPD hypertension history of smoking started having shortness of breath and chest pressure since afternoon. So he came to the emergency room. He denies any nausea vomiting diaphoresis urinary trouble. Patient has off and on this type of symptoms. In past patient was exposed to some farm chemicals and since then he has a lung problems which gives him shortness of breath off and on. Patient was also in emergency room recently for the same problems. Timing/Duration: today Activities at Onset: activity Severity of Dyspnea-Max: moderate Severity of Dyspnea-Current: moderate Possible Cause: frequent episodes Modifying Factors: Improves With: nothing Associated Symptoms: chest pain/discomfort, wheezing Allergies/Adverse Reactions: Influenza Virus Vaccines Allergy (Verified 09/23/21 23:14) [place] nuts Allergy (Uncoded 09/23/21 23:14) Home Medications: Budesonide/Formoterol Fumarate [Symbicort 160-4.5 Mcg Inhaler] 10.2 gm IH BID [History] Fluticasone/Vilanterol [Breo Ellipta 100-25 Mcg INH] 1 each IH DAILY 02/22/17 [History] Omeprazole [Prilosec] 40 mg PO DAILY 02/22/17 [History] Carbidopa/Levodopa [Carbidopa-Levo 25-100 Tab] 1 each PO QID 05/13/17 [History] Gabapentin 800 mg PO TID 05/13/17 [History] Hydrocodone Bit/Acetaminophen [[place] 5-325 Tablet] 1 each PO Q6HPRN PRN 05/13/17 [History] Tizanidine HCl 4 mg PO HS 05/13/17 [History] Zolpidem Tartrate [Ambien] 5 mg PO HS 05/13/17 [History] Zonisamide 150 mg PO BID 05/13/17 [History] Aspirin 81 mg PO DAILY 07/29/17 [History] Atorvastatin Calcium 80 mg PO DAILY 07/29/17 [History] Carvedilol 3.125 mg [Coreg 3.125 MG] 3.125 mg PO BID 07/29/17 [History] Ticagrelor [Brilinta] 90 mg PO BID 07/29/17 [History] Hx Tetanus, Diphtheria Vaccination/Date Given: No (unknown) Hx Influenza Vaccination/Date Given: No Hx Pneumococcal Vaccination/Date Given: No Travel Risk - International Travel Have you traveled outside of the country in past 3 weeks: No - Coronavirus Screening Are you exhibiting any of the following symptoms?: No Close contact with a COVID-19 positive Pt in past 14-21 Days: No - Vaccine Status Have you recieved a Covid-19 vaccination: Yes [employer] Operator: [employer] - Vaccination Dates Date of 2cond Vaccination (if applicable): unknown - Review of Systems Constitutional: No Fever, No Chills Eyes: No Symptoms Ears, Nose, & Throat: No Symptoms Respiratory: Dyspnea, Dyspnea on Exertion (HUNTER), No Cough Cardiac: Chest Pain, No Edema, No Palpitations, No Syncope Abdominal/Gastrointestinal: No Abdominal Pain, No Nausea, No Vomiting, No Diarrhea Genitourinary Symptoms: No Dysuria Musculoskeletal: No Back Pain, No Neck Pain Skin: No Rash Neurological: No Dizziness, No Focal Weakness, No Sensory Changes Psychological: No Symptoms Endocrine: No Symptoms All Other Systems: Reviewed and Negative - Past Medical History Pertinent Past Medical History: Yes Neurological History: No Pertinent History ENT History: No Pertinent History Cardiac History: Myocardial Infarction ([place]) Respiratory History: No Pertinent History Endocrine Medical History: No Pertinent History Musculoskeletal History: Arthritis, Fibromyalgia GI Medical History: GERD History: No Pertinent History Psycho-Social History: Depression Male Reproductive Disorders: No Pertinent History - Past Surgical History Past Surgical History: No Cardiac: Cardiac Catheterization, Cardiac Stent Other Surgical History: I and D's from cysts on posterior torso. - Social History Smoking Status: Current every day smoker How long have you smoked: 25 Exposure to second hand smoke: No Drug Use: none Patient Lives Alone: No - Nursing Vital Signs Nursing Vital Signs: Initial Vital Signs Temperature 97.6 F 09/23/21 23:19 Pulse Rate 74 09/23/21 23:19 Respiratory Rate 22 09/23/21 23:19 Blood Pressure 133/79 09/23/21 23:19 O2 Sat by Pulse Oximetry 99 09/23/21 23:19 Pain Scale Pain Intensity 4 - Physical Exam General Appearance: no apparent distress, alert Eye Exam: PERRL/EOMI Neck Exam: normal inspection, supple Respiratory Exam: diminished breath sounds, wheezing Cardiovascular/Chest Exam: normal heart sounds, regular rate/rhythm Abdominal/Gastrointestinal Exam: soft, No tenderness, No distention, No mass Extremity Exam: non-tender, normal range of motion, normal inspection, no calf tenderness, no pedal edema Neurologic Exam: alert, oriented x 3, cooperative, tree surgeon II-XII nml as tested, sensation nml, No motor deficits Skin Exam: normal color, warm, No dry SpO2 Interpretation: normal SpO2: 99 O2 Delivery: Room Air - Course Nursing assessment & vital signs reviewed: Yes EKG Interpreted by Me: Sinus Rhythm - Radiology Exams Chest X-ray Interpretation: Reviewed by me, No Pneumonia, No Pneumothorax Ordered Tests: Active Orders 24 hr Category Date Time Status Oxygen-ED Only Nasal Cannula 2 lpm Care 09/23/21 23:35 Active CHEST 2 VIEWS (PA AND LAT) Stat Exams 09/23/21 23:30 Taken CBC W DIFF Stat Lab 09/23/21 23:51 Completed CMP Stat Lab 09/23/21 23:51 Received D-DIMER QUANTITATIVE Stat Lab 09/23/21 23:51 Received NT PRO BNP Stat Lab 09/23/21 23:51 Received TROPONIN Q3H Lab 09/23/21 23:30 Ordered TROPONIN Q3H Lab 09/24/21 02:30 Ordered TROPONIN Q3H Lab 09/24/21 05:30 Ordered TROPONIN Q3H Lab 09/24/21 08:30 Ordered TROPONIN Q3H Lab 09/24/21 11:30 Ordered Respiratory Therapy Assessment DAILY RT 09/23/21 23:47 Completed Medication Summary Discontinued Medications Generic Name Dose Route Start Last Admin Trade Name Freq PRN Reason Stop Dose Admin Albuterol/Ipratropium 3 ml 09/23/21 23:35 09/23/21 23:47 Ipratropium/Albuterol Sulfate 3 Ml Ampul.Neb IH 09/23/21 23:36 3 ml STAT ONE Administration Albuterol/Ipratropium Confirm 09/23/21 23:44 Ipratropium/Albuterol Sulfate 3 Ml Ampul.Neb Administered 09/23/21 23:45 Dose 3 ml IH .STK-MED ONE Methylprednisolone Sodium 0 mg 09/24/21 00:11 Succinate 125 mg/ Sterile IM 09/24/21 00:12 Water 2 ml STAT ONE Morphine Sulfate 2 mg 09/23/21 23:35 09/23/21 23:57 Morphine Sulfate 2 Mg/Ml Inj IM 09/23/21 23:36 2 mg STAT ONE Administration Morphine Sulfate Confirm 09/23/21 23:57 Morphine Sulfate 2 Mg/Ml Inj Administered 09/23/21 23:58 Dose 2 mg .ROUTE .STK-MED ONE Lab/Rad Data: Laboratory Result Diagrams 09/23/21 23:51 Laboratory Results 09/23/21 09/23/21 Range/Units 23:51 23:51 WBC 9.7 (4.0-10.5) K/mm3 RBC 5.31 (4.1-5.6) M/mm3 Hgb 16.2 (12.5-18.0) gm/dl Hct 48.6 (42-50) % MCV 91.5 (78-100) fl MCH 30.5 (26-32) pg MCHC 33.3 (32-36) g/dl RDW 14.5 H (11.5-14.0) % Plt Count 248 (150-450) K/mm3 MPV 9.5 (7.5-11.0) fl Gran % 50.7 (36.0-66.0) % Eos # (Auto) 0.34 (0-0.5) Absolute Lymphs (auto) 3.58 (1.0-4.6) Absolute Monos (auto) 0.81 (0.0-1.3) Lymphocytes % 36.8 (24.0-44.0) % Monocytes % 8.3 (0.0-12.0) % Eosinophils % 3.5 (0.00-5.0) % Basophils % 0.7 (0.0-0.4) % Absolute Granulocytes 4.94 (1.4-6.9) Basophils # 0.07 (0-0.4) D-Dimer 411 (215-500) ng/mL - Progress Progress: improved Air Movement: good Blood Culture(s) Obtained: No Antibiotics given: No Counseled pt/family regarding: lab results, diagnosis, need for follow-up, rad results - Departure Departure Disposition: Home Clinical Impression: Bronchospasm with bronchitis, acute Condition: Stable Critical Care Time: No Referrals: BARRINGTON AYERS MD [Primary Care Provider] - Follow up/PCP as directed Instructions: Shortness of Breath (Dyspnea) (DC), Exacerbation of COPD (DC) Additional Instructions: Discharge/Care Plan LOIS CRUMP was seen on 09/24/21 in the Emergency Room. The patient was counseled regarding Diagnosis,Lab results, Imaging studies, need for follow up and when to return to the Emergency Room. Prescriptions given: Discharge Note I have spoken with the patient and/or caregivers. I have explained the patient's condition, diagnosis and treatment plan based on the information available to me at this time. I have answered the patient's and/or caregiver's questions and addressed any concerns. The patient and/or caregivers have as good understanding of the patient's diagnosis, condition and treatment plan as can be expected at this point. The vital signs have been stable. The patient's condition is stable and appropriate for discharge from the emergency department. The patient will pursue further outpatient evaluation with the primary care physician or other designated or consulting physician as outlined in the disch arge instructions. The patient and/or caregivers are agreeable to this plan of care and follow-up instructions have been explained in detail. The patient and/or caregivers have received these instruction. The patient/and or caregivers are aware that any significant change in condition or worsening of symptoms should prompt an immediate return to this or the closest emergency department or call 911. LOIS CRUMP was seen on 09/24/21 n the Emergency Room. At that time you were treated for an emergent condition, during your visit Laboratory, Radiology and/or other procedures may have been ordered. It is very important that you follow-up with your Primary Care Physician BARRINGTON AYERS within the next 24-48 hours to review your Emergency Room visit and the final results of testing that was ordered. Some test results such as Urine Cultures, Blood Cultures, and other cultures if ordered will not be finalized for 24-48 hours. If you do not have a Primary Care Provider please call the medical records depa rtment at [phone] ext [phone] to obtain a copy of your results or you may sign into our patient portal to obtain these results by visiting us @ [email or web address] and completing the following steps: 1. Click on the Patient Portal link 2. Click the Patient Self Enrollment Link to complete the enrollment form and entering your 3. Once the enrollment form is completed you will receive an email with a temporary ID and password at the email address you provided. 4. Next choose a user name and password. Your user name must be at least 4 characters long and your password must be at least 4 characters long. 5. Choose a security question from the list and provide your answer to the question. If you already have signed into the Health Portal you may access your Health Care Information 03/06 by the following steps: 1. Login to our website @ [email or web address] 2. Enter your original user name and password. FAQS The [facility] Portal is an online tool that contains your Lab Results, Radiology Reports, Visit History, Discharge Instructions and Health Summary Lab and Radiology Results will not be available for 72 hours on the portal. The Portal is a secure site, passwords are encryted and URLs are re-written so they cannot be copied and pasted. You and authorized family members are the only ones who can access your Portal. Also there is a timeout feature that protects your information if you leave the Portal page open. If you have technical difficulty please use the Contact Us link on the page this will allow you to submit any questions you have regarding the Portal or you may contact the Medical Record Department at [phone]. Prescriptions: Azithromycin 500 mg PO DAILY 3 Days #3 tablet Methylprednisolone Packet [Medrol Dosepack] 4 mg PO UD #21 packet
[2021-09-23 23:56] LABS: Absolute Neutrophil Ct (ANC) 4.94 (1.4-6.9); BASOPHIL % 0.7 % (0.0-0.4); Basophil (Absolute #) 0.07 (0-0.4); Eosinophil % 3.5 % (0.00-5.0); Eosinophil (Absolute #) 0.34 (0-0.5); Hematocrit 48.6 % (42-50); Hemoglobin 16.2 gm/dl (12.5-18.0); Lymphocyte (Absolute #) 3.58 (1.0-4.6); Lymphocytes % 36.8 % (24.0-44.0); Mean Cell Volume 91.5 fl (78-100); Mean Corpuscular Hemoglobin 30.5 pg (26-32); Mean Corpuscular Hgb Concent. 33.3 g/dl (32-36); Mean Platelet Volume 9.5 fl (7.5-11.0); Monocyte (Absolute #) 0.81 (0.0-1.3); Monocytes % 8.3 % (0.0-12.0); Neutrophil % 50.7 % (36.0-66.0); Platelet Count 248 K/mm3 (150-450); Red Blood Count 5.31 M/mm3 (4.1-5.6); Red Cell Distribution Width 14.5 % (11.5-14.0); White Blood Count 9.7 K/mm3 (4.0-10.5)
[2021-09-23] MEDS ORDERED: MORPHINE SULFATE 2 MG INJ ONE (23:57)
[2021-09-24] MEDS ORDERED: solu-MEDROL 125 MG, Sterile H2O 10 ml 2 ML IM ONE ×2 (00:11)
[2021-09-24] MEDS ORDERED: solu-MEDROL ONE (00:17)
[2021-09-24] MEDS ORDERED: Sterile H2O 10 ml IJ ONE (00:17)
[2021-09-24 00:36] LABS: ALBUMIN 4.2 g/dL (3.5-5.0); ALKALINE PHOSPHATASE 112 U/L (38-126); ANION GAP 12.9 MEQ/L (5-15); BLOOD UREA NITROGEN 5 mg/dL (9-20); CHLORIDE 101 mmol/L (98-107); Calcium 9.2 mg/dL (8.4-10.2); Carbon Dioxide 29 mmol/L (22-30); Creatinine 1 0.88 mg/dL (0.66-1.25); EST GLOMERULAR FILTRATION RATE > 60.0 ML/MIN; Glucose 95 mg/dL (74-106); NT PRO BNP 66.3 pg/mL (0-900); Potassium 4.1 mmol/L (3.5-5.1); SGOT/AST 25 U/L (17-59); SGPT/ALT 15 U/L (0-50); SODIUM 140 mmol/L (137-145); Total Protein 7.4 g/dL (6.3-8.2)
--- NOTE | 2021-09-24 08:12 | XRAY ---
Indication: Short of breath. Comparison: September 04, 2021. PA/lateral chest again demonstrates normal heart and lungs. Bony thorax intact again with mild degenerative changes. No new/acute findings.
== END 2021-09-24 00:29 | disposition home or self-care (01) ==
LOC: ED 23:08
DX: J20.9 Acute bronchitis, unspecified (principal); J44.0 Chronic obstructive pulmonary disease with (acute) lower respiratory infection; I10 Essential (primary) hypertension; Z72.0 Tobacco use; Z79.899 Other long term (current) drug therapy
CPT/HCPCS: 36415; 71046; 80053; 83880; 84484; 85025; 85379; 94640; 96372; 99284; J2270; J2930; A9270-GY

== ENCOUNTER 2022-08-17 11:15 | Emergency (ER) | payer MEDICARE ==
[2022-08-17 11:34] VITALS: O2SAT 93
--- NOTE | 2022-08-17 11:58 | ERPHSYRPT ---
- History of Present Illness Source: patient, EMS Exam Limitations: other (Poor historian) Patient Subjective Stated Complaint: Patient c/o productive cough for the past few days and being tired/sleeping a lot for several days. States he becomes SOB at times when coughing. Family states that patient is confused today but patient denies any confusion. Family described confusion to ambulance staff as "slow to answer." Triage Nursing Assessment: Patient ambulated from cot to bed per self without any diffculties. He is alert and oriented at this time; answering all questions appropriately. However, when asked to take a deep breath to listen to breath sounds, patient continues to breath normal like he doesn't understand how to comply with request. A moist, non-productive cough noted. Unable to hear any abnormal lung sounds but patient is not deep breathing. Skin noted to have a yellow/maynard tint to it. Physician History: 51 yo wm presents per EMS w lethargy per his family and cough x 5 days. He states that the cough is nonproductive and denies fever/coryza/N/V/D/melena/hematochezia. Pt smokes 2 ppd but is not on home O2. Chest pain is also denied. He is alert and oriented x 3 w a good airway but is an extremely poor historian. Timing/Duration: other (Cough x5 days) Cough Quality/Degree: dry cough Possible Cause: occasional episodes Modifying Factors: Improves With: coughing, exertion Associated Symptoms: cough, shortness of breath, No fever, No chills, No chest pain/soreness, No dizziness, No earache, No facial pain, No headache, No lightheadedness, No muscle aches, No nasal congestion, No nasal drainage, No sinus infection, No sore throat, No wheezing Allergies/Adverse Reactions: Influenza Virus Vaccines Allergy (Verified 08/17/22 11:17) [place] nuts Allergy (Uncoded 08/17/22 11:17) Home Medications: Budesonide/Formoterol Fumarate [Symbicort 160-4.5 Mcg Inhaler] 10.2 gm IH BID 02/22/17 [History] Fluticasone/Vilanterol [Breo Ellipta 100-25 Mcg INH] 1 each IH DAILY 02/22/17 [History] Omeprazole [Prilosec] 40 mg PO DAILY 02/22/17 [History] Carbidopa/Levodopa [Carbidopa-Levo 25-100 Tab] 1 each PO QID 05/13/17 [History] Gabapentin 800 mg PO TID 05/13/17 [History] Hydrocodone/Acetaminophen [[place] 5-325 Tablet] 1 each PO Q6HPRN PRN 05/13/17 [History] Tizanidine HCl 4 mg PO HS 05/13/17 [History] Zolpidem Tartrate [Ambien] 5 mg PO HS 05/13/17 [History] Zonisamide 150 mg PO BID 05/13/17 [History] Aspirin 81 mg PO DAILY 07/29/17 [History] Atorvastatin Calcium 80 mg PO DAILY 07/29/17 [History] Carvedilol 3.125 mg [Coreg 3.125 MG] 3.125 mg PO BID 07/29/17 [History] Ticagrelor [Brilinta] 90 mg PO BID 07/29/17 [History] Hx Tetanus, Diphtheria Vaccination/Date Given: Yes Hx Influenza Vaccination/Date Given: No Hx Pneumococcal Vaccination/Date Given: No Immunizations Up to Date: Yes Travel Risk - International Travel Have you traveled outside of the country in past 3 weeks: No - Coronavirus Screening Are you exhibiting any of the following symptoms?: Yes Symptoms: Cough: New Onset, Shortness of Breath, Headaches/Body Aches/Fatigue Close contact with a COVID-19 positive Pt in past 14-21 Days: No - Vaccine Status Have you recieved a Covid-19 vaccination: No 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: [employer] - Vaccination Dates Date of 2cond Vaccination (if applicable): unkn - Review of Systems Constitutional: No Symptoms Eyes: No Symptoms Ears, Nose, & Throat: No Symptoms Respiratory: Cough Cardiac: No Symptoms Abdominal/Gastrointestinal: No Symptoms Genitourinary Symptoms: No Symptoms Musculoskeletal: No Symptoms Skin: No Symptoms Neurological: No Symptoms Psychological: No Symptoms Endocrine: No Symptoms Hematologic/Lymphatic: No Symptoms Immunological/Allergic: No Symptoms - Past Medical History Pertinent Past Medical History: Yes Neurological History: No Pertinent History ENT History: No Pertinent History Cardiac History: High Cholesterol, Hypertension, Myocardial Infarction ([place]) Respiratory History: No Pertinent History Endocrine Medical History: No Pertinent History Musculoskeletal History: Arthritis, Fibromyalgia GI Medical History: GERD History: No Pertinent History Psycho-Social History: No Pertinent History Male Reproductive Disorders: No Pertinent History - Past Surgical History Past Surgical History: Yes Cardiac: Cardiac Catheterization, Cardiac Stent Other Surgical History: I and D's from cysts on posterior torso. - Social History Smoking Status: Current every day smoker How long have you smoked: 25 Exposure to second hand smoke: No Drug Use: none Patient Lives Alone: No () Significant Family History: no pertinent family hx - Nursing Vital Signs Nursing Vital Signs: Initial Vital Signs Temperature 98.5 F 08/17/22 11:19 Pulse Rate 60 08/17/22 11:19 Respiratory Rate 20 08/17/22 11:19 Blood Pressure 144/70 08/17/22 11:19 O2 Sat by Pulse Oximetry 93 L 08/17/22 11:19 Pain Scale Pain Intensity 0 Hypertensive/borderline sats - Physical Exam General Appearance: no apparent distress Eye Exam: PERRL/EOMI, eyes nml inspection Ears, Nose, Throat Exam: normal ENT inspection, TMs normal, pharynx normal, moist mucous membranes Neck Exam: normal inspection, non-tender, supple, full range of motion, No meningismus, No mass, No Brudzinski, No Kernig's Respiratory Exam: diminished breath sounds (Decreased BS B/Very poor effort by pt) Cardiovascular Exam: regular rate/rhythm, normal heart sounds, normal peripheral pulses, capillary refill <2 sec, No murmur Gastrointestinal/Abdomen Exam: soft, normal bowel sounds, No tenderness Back Exam: normal inspection, normal range of motion, No CVA tenderness, No vertebral tenderness Extremity Exam: normal inspection, normal range of motion Neurologic Exam: alert, oriented x 3, 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, normal mood/affect Skin Exam: normal color, warm, dry, No rash Lymphatic Exam: No adenopathy SpO2 Interpretation: borderline oxygenation SpO2: 93 O2 Delivery: Room Air - Course Nursing assessment & vital signs reviewed: Yes EKG Interpreted by Me: RATE (Sinus Bhavik/Rate 64/Normal QT-QTc/LVH/No acute ST segment changes) - Radiology Exams Chest X-ray Interpretation: Discussed w/ radiologist (CXR neg per Rad) - CT Exams Chest CT Interpretation: Discussed w/radiologist (CT chest w contrast neg per Rad) Ordered Tests: Active Orders 24 hr Category Date Time Status EKG-ER Only STAT Care 08/17/22 11:51 Completed CHEST 1 VIEW (PORTABLE) Stat Exams 08/17/22 11:51 Completed CHEST WITH CONTRAST [CT] Stat Exams 08/17/22 13:36 Completed CBC W DIFF Stat Lab 08/17/22 12:07 Completed CMP Stat Lab 08/17/22 12:07 Completed Lactic Acid Stat Lab 08/17/22 12:08 Completed NT PRO BNP Stat Lab 08/17/22 12:07 Completed PROTIME WITH INR Stat Lab 08/17/22 12:07 Completed PTT Stat Lab 08/17/22 12:07 Completed TROPONIN Q4H Lab 08/17/22 12:07 Completed Lab/Rad Data: Laboratory Result Diagrams 08/17/22 12:07 08/17/22 12:07 Laboratory Results 08/17/22 08/17/22 08/17/22 Range/Units 12:10 12:08 12:07 WBC (4.0-10.5) x10^3/uL RBC (4.1-5.6) x10^6/uL Hgb (12.5-18.0) g/dL Hct (42-50) % MCV (78-100) fL MCH (26-32) pg MCHC (32-36) g/dL RDW (11.5-14.0) % Plt Count (150-450) x10^3/uL MPV (7.5-11.0) fL Gran % (36.0-66.0) % Immature Gran % (Auto) (0.00-0.4) % Nucleat RBC Rel Count (0.00-0.1) % Eos # (Auto) (0-0.5) x10^3/uL Immature Gran # (Auto) (0.00-0.03) x10^3u/L Absolute Lymphs (auto) (1.0-4.6) x10^3/uL Absolute Monos (auto) (0.0-1.3) x10^3/uL Absolute Nucleated RBC (0.00-0.01) x10^3u/L Lymphocytes % (24.0-44.0) % Monocytes % (0.0-12.0) % Eosinophils % (0.00-5.0) % Basophils % (0.0-0.4) % Absolute Granulocytes (1.4-6.9) x10^3/uL Basophils # (0-0.4) x10^3/uL PT (9.4-12.5) SECONDS INR (0.8-3.0) APTT (25.1-36.5) SECONDS Sodium (137-145) mmol/L Potassium (3.5-5.1) mmol/L Chloride (98-107) mmol/L Carbon Dioxide (22-30) mmol/L Anion Gap (5-15) MEQ/L BUN (9-20) mg/dL Creatinine (0.66-1.25) mg/dL Estimated GFR ML/MIN Glucose (74-106) mg/dL Lactic Acid 0.7 (0.4-2.0) Calcium (8.4-10.2) mg/dL Total Bilirubin (0.2-1.3) mg/dL AST (17-59) U/L ALT (0-50) U/L Alkaline Phosphatase (38-126) U/L Troponin I < 0.012 (0.000-0.034) ng/mL NT-Pro-B Natriuret Pep (0-900) pg/mL Serum Total Protein (6.3-8.2) g/dL Albumin (3.5-5.0) g/dL Influenza Type A Ag NEGATIVE (NEGATIVE) Influenza Type B Ag NEGATIVE (NEGATIVE) RSV (PCR) NEGATIVE (Negative) SARS-CoV-2 (PCR) NEGATIVE (NEGATIVE) Slides for Path Review 08/17/22 08/17/22 08/17/22 Range/Units 12:07 12:07 12:07 WBC 22.5 H (4.0-10.5) x10^3/uL RBC 4.57 (4.1-5.6) x10^6/uL Hgb 14.1 (12.5-18.0) g/dL Hct 40.4 L (42-50) % MCV 88.4 (78-100) fL MCH 30.9 (26-32) pg MCHC 34.9 (32-36) g/dL RDW 13.1 (11.5-14.0) % Plt Count 262 (150-450) x10^3/uL MPV 9.6 (7.5-11.0) fL Gran % 81.1 H (36.0-66.0) % Immature Gran % (Auto) 0.6 H (0.00-0.4) % Nucleat RBC Rel Count 0.0 (0.00-0.1) % Eos # (Auto) 0.21 (0-0.5) x10^3/uL Immature Gran # (Auto) 0.13 H (0.00-0.03) x10^3u/L Absolute Lymphs (auto) 1.94 (1.0-4.6) x10^3/uL Absolute Monos (auto) 1.90 H (0.0-1.3) x10^3/uL Absolute Nucleated RBC 0.00 (0.00-0.01) x10^3u/L Lymphocytes % 8.6 L (24.0-44.0) % Monocytes % 8.5 (0.0-12.0) % Eosinophils % 0.9 (0.00-5.0) % Basophils % 0.3 (0.0-0.4) % Absolute Granulocytes 18.22 H (1.4-6.9) x10^3/uL Basophils # 0.07 (0-0.4) x10^3/uL PT 10.3 (9.4-12.5) SECONDS INR 0.97 (0.8-3.0) APTT 29.3 (25.1-36.5) SECONDS Sodium 133 L (137-145) mmol/L Potassium 3.8 (3.5-5.1) mmol/L Chloride 94 L (98-107) mmol/L Carbon Dioxide 32 H (22-30) mmol/L Anion Gap 11.5 (5-15) MEQ/L BUN 10 (9-20) mg/dL Creatinine 0.79 (0.66-1.25) mg/dL Estimated GFR > 60.0 ML/MIN Glucose 116 H (74-106) mg/dL Lactic Acid (0.4-2.0) Calcium 8.8 (8.4-10.2) mg/dL Total Bilirubin 0.60 (0.2-1.3) mg/dL AST 19 (17-59) U/L ALT 15 (0-50) U/L Alkaline Phosphatase 118 (38-126) U/L Troponin I (0.000-0.034) ng/mL NT-Pro-B Natriuret Pep 1810 H (0-900) pg/mL Serum Total Protein 7.6 (6.3-8.2) g/dL Albumin 4.0 (3.5-5.0) g/dL Influenza Type A Ag (NEGATIVE) Influenza Type B Ag (NEGATIVE) RSV (PCR) (Negative) SARS-CoV-2 (PCR) (NEGATIVE) Slides for Path Review - Progress Progress: improved Progress Note: 08/17/22 14:41 Pt w leukocytosis but is on prednisone at this time 08/17/22 20:17 Counseled pt/family regarding: lab results, diagnosis, need for follow-up, rad results - Departure Departure Disposition: Home Clinical Impression: Bronchitis Condition: Stable Critical Care Time: No Referrals: BARRINGTON AYERS MD [Primary Care Provider] - Follow up/PCP as directed Instructions: Acute Bronchitis, Adult (DC), Chronic Obstructive Pulmonary Disease (COPD) (DC), Cough, Adult (DC) Additional Instructions: Follow up with Dr. Ayers Start Doxycycline 100mg twice a day for 1 week Return to ER for worsening cough, temperature greater than 100.5, or increasing shortness of breath Prescriptions: Doxycycline Monohydrate 100 mg PO BID #14 cap
[2022-08-17 12:15] LABS: Absolute Neutrophil Ct (ANC) 18.22 x10^3/uL (1.4-6.9); Basophil (Absolute #) 0.07 x10^3/uL (0-0.4); Eosinophil % 0.9 % (0.00-5.0); Eosinophil (Absolute #) 0.21 x10^3/uL (0-0.5); Hematocrit 40.4 % (42-50); Hemoglobin 14.1 g/dL (12.5-18.0); Lymphocyte (Absolute #) 1.94 x10^3/uL (1.0-4.6); Lymphocytes % 8.6 % (24.0-44.0); Mean Cell Volume 88.4 fL (78-100); Mean Corpuscular Hemoglobin 30.9 pg (26-32); Mean Corpuscular Hgb Concent. 34.9 g/dL (32-36); Mean Platelet Volume 9.6 fL (7.5-11.0); Monocytes % 8.5 % (0.0-12.0); Neutrophil % 81.1 % (36.0-66.0); Platelet Count 262 x10^3/uL (150-450); Red Blood Count 4.57 x10^6/uL (4.1-5.6); Red Cell Distribution Width 13.1 % (11.5-14.0); White Blood Count 22.5 x10^3/uL (4.0-10.5)
--- NOTE | 2022-08-17 12:17 | XRAY ---
Indication: Cough and short of breath. Comparison: September 23, 2021 Portable chest demonstrates again normal heart and lungs. Bony thorax intact again with mild degenerative changes. No new/acute findings.
[2022-08-17 12:21] VITALS: BP 140/71; PULSE 62
[2022-08-17 12:30] LABS: INR 0.97 (0.8-3.0); PROTIME 10.3 SECONDS (9.4-12.5); PTT 29.3 SECONDS (25.1-36.5)
[2022-08-17 12:43] LABS: ALKALINE PHOSPHATASE 118 U/L (38-126); ANION GAP 11.5 MEQ/L (5-15); BLOOD UREA NITROGEN 10 mg/dL (9-20); CHLORIDE 94 mmol/L (98-107); Calcium 8.8 mg/dL (8.4-10.2); Carbon Dioxide 32 mmol/L (22-30); Creatinine 1 0.79 mg/dL (0.66-1.25); EST GLOMERULAR FILTRATION RATE > 60.0 ML/MIN; Glucose 116 mg/dL (74-106); NT PRO BNP 1810 pg/mL (0-900); Potassium 3.8 mmol/L (3.5-5.1); SGOT/AST 19 U/L (17-59); SGPT/ALT 15 U/L (0-50); SODIUM 133 mmol/L (137-145); Total Protein 7.6 g/dL (6.3-8.2)
[2022-08-17 12:53] LABS: INFLUENZA A NEGATIVE (NEGATIVE); INFLUENZA B NEGATIVE (NEGATIVE); RESPIRATORY SYNCTIAL VIRUS NEGATIVE (Negative); SARS-CoV-2 Xpert Express NEGATIVE (NEGATIVE)
--- NOTE | 2022-08-17 14:22 | XRAY ---
Indication: Cough and short of breath 5 days. Multiple contiguous axial images obtained through the chest using 80 cc Isovue 370 contrast. Comparison: September 18, 2017 Lungs inflated and clear again with incidental tiny lingula calcified granuloma. Heart not enlarged. Aorta is normal in course and caliber. No pathologic mediastinal/hilar lymphadenopathy. Bony thorax intact with minimal degenerative changes throughout the spine. Limited upper abdomen again demonstrates 13.5 cm splenomegaly. Impression: Continued normal CT chest with contrast exam. Again incidental lingula calcified granuloma and splenomegaly.
== END 2022-08-17 14:54 | disposition home or self-care (01) ==
LOC: ED 11:15
DX: J40 Bronchitis, not specified as acute or chronic (principal); R05.1 Acute cough; R53.83 Other fatigue; E78.5 Hyperlipidemia, unspecified; I10 Essential (primary) hypertension; Z72.0 Tobacco use; Z79.02 Long term (current) use of antithrombotics/antiplatelets; Z79.899 Other long term (current) drug therapy
CPT/HCPCS: 0241U; 36000; 36415; 71045; 71260; 80053; 83605; 83880; 84484; 85025; 85610; 85730; 93005; 99284

== ENCOUNTER 2022-12-31 18:53 | Emergency (ER) | payer MEDICARE ==
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
[2022-12-31 19:37] VITALS: PULSE 70
[2022-12-31 21:19] VITALS: BP 160/80; O2SAT 96
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
== END 2022-12-31 21:25 | disposition home or self-care (01) ==
LOC: ED 18:53
DX: S20.229A Contusion of unspecified back wall of thorax, initial encounter (principal); V89.2XXA Person injured in unspecified motor-vehicle accident, traffic, initial encounter; M54.2 Cervicalgia; E78.5 Hyperlipidemia, unspecified; I10 Essential (primary) hypertension; Z79.01 Long term (current) use of anticoagulants; Z79.899 Other long term (current) drug therapy; Z72.0 Tobacco use
CPT/HCPCS: 72125; 72128; 99285

== ENCOUNTER 2023-12-21 00:23 | Emergency (ER) | payer MEDICARE ==
[2023-12-21 00:35] VITALS: TEMP 97.9
--- NOTE | 2023-12-21 00:45 | ERPHSYRPT ---
- History of Present Illness Time Seen by Provider: 12/21/23 00:35 Source: patient, family Exam Limitations: no limitations Patient Subjective Stated Complaint: pt states he was getting ready to lay down when he became short of breath Triage Nursing Assessment: pt ambulated into the er; pt is axo x4; c/o SOB; pt is able to talk in full sentences; no respiratory distress present; wheezing in all lobes; moist hacking cough present; clear heart tone; afebrile; skin PDW; hypertensive Physician History: This is a 53-year-old white male patient of Dr. Ayers who presents to the emergency department with complaint of shortness of breath when lying flat. Earlier in the week he had intermittent chest discomfort that was substernal and nonradiating. He does not have that discomfort now. Patient continues to smoke cigarettes daily. 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 Patient has coronary disease with a coronary artery stent in place. He is on Plavix. Patient has a history of hyperlipidemia, hypertension, recurrent bronchitis, gastroesophageal reflux disease, arthritis, fibromyalgia and COPD. He is not on oxygen therapy at home. Patient denies fever. He has no abdominal pain. Timing/Duration: today Activities at Onset: other (Lying flat) Severity of Dyspnea-Max: mild Severity of Dyspnea-Current: mild Possible Cause: occasional episodes Modifying Factors: Improves With: lying down Associated Symptoms: chest pain/discomfort (Earlier in the week none now) Allergies/Adverse Reactions: bee venom protein (honey bee) Allergy (Verified 12/21/23 00:24) Swelling Influenza Virus Vaccines Allergy (Verified 12/21/23 00:24) [place] nuts Allergy (Uncoded 12/21/23 00:24) Home Medications: Budesonide/Formoterol Fumarate [Symbicort 160-4.5 Mcg Inhaler] 10.2 gm IH BID 02/22/17 [History] Fluticasone/Vilanterol [Breo Ellipta 100-25 Mcg INH] 1 each IH DAILY 02/22/17 [History] Gabapentin 800 mg PO TID 05/13/17 [History] Aspirin 81 mg PO DAILY 07/29/17 [History] Atorvastatin Calcium 80 mg PO DAILY 07/29/17 [History] Carvedilol 3.125 mg [Coreg 3.125 MG] 3.125 mg PO BID 07/29/17 [History] Clopidogrel Bisulfate [Clopidogrel] 75 mg PO DAILY 03/14/23 [History] Isosorbide Mononitrate [Isosorbide Mononitrate ER] 30 mg PO DAILY 03/14/23 [History] Misoprostol [Cytotec] 200 mcg PO HS 03/14/23 [History] Oxaprozin [Daypro] 600 mg PO DAILY 03/14/23 [History] Pantoprazole Sodium [Protonix] 40 mg PO DAILY 03/14/23 [History] Propranolol HCl [Propranolol HCl ER] 80 mg PO DAILY 03/14/23 [History] Sertraline HCl [Zoloft] 100 mg PO DAILY 12/21/23 [History] Hx Tetanus, Diphtheria Vaccination/Date Given: Yes Hx Influenza Vaccination/Date Given: No Hx Pneumococcal Vaccination/Date Given: No Travel Risk - International Travel Have you traveled outside of the country in past 3 weeks: No - Coronavirus Screening Are you exhibiting any of the following symptoms?: Yes Symptoms: Shortness of Breath Close contact with a COVID-19 positive Pt in past 14-21 Days: No - Vaccine Status Have you recieved a Covid-19 vaccination: Yes 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: [employer] - Vaccination Dates Date of 2cond Vaccination (if applicable): 2020 - Review of Systems Constitutional: No Symptoms Eyes: No Symptoms Ears, Nose, & Throat: No Symptoms Respiratory: Cough, Dyspnea, Wheezing Cardiac: No Chest Pain (None now) Abdominal/Gastrointestinal: No Symptoms Genitourinary Symptoms: No Symptoms Musculoskeletal: No Symptoms Skin: No Symptoms Neurological: No Symptoms Psychological: No Symptoms Endocrine: No Symptoms Hematologic/Lymphatic: No Symptoms Immunological/Allergic: No Symptoms All Other Systems: Reviewed and Negative - Past Medical History Pertinent Past Medical History: Yes Neurological History: No Pertinent History ENT History: No Pertinent History Cardiac History: High Cholesterol, Hypertension, Myocardial Infarction ([place]) Respiratory History: No Pertinent History Endocrine Medical History: No Pertinent History Musculoskeletal History: Arthritis, Fibromyalgia GI Medical History: GERD History: No Pertinent History Psycho-Social History: Depression Male Reproductive Disorders: No Pertinent History - Past Surgical History Past Surgical History: Yes Cardiac: Cardiac Catheterization, Cardiac Stent Other Surgical History: I and D's from cysts on posterior torso. - Social History Smoking Status: Current every day smoker How long have you smoked: 25 Exposure to second hand smoke: No Drug Use: none Patient Lives Alone: No Significant Family History: no pertinent family hx - Nursing Vital Signs Nursing Vital Signs: Initial Vital Signs Temperature 97.9 F 12/21/23 00:23 Pulse Rate 65 12/21/23 00:23 Respiratory Rate 15 12/21/23 00:23 Blood Pressure 167/90 12/21/23 00:23 O2 Sat by Pulse Oximetry 97 12/21/23 00:23 Pain Scale Pain Intensity 0 - Physical Exam General Appearance: no apparent distress, alert Eye Exam: PERRL/EOMI, eyes nml inspection Ears, Nose, Throat Exam: hearing grossly normal, normal ENT inspection, normal pharynx Neck Exam: normal inspection, non-tender, supple, full range of motion Respiratory Exam: normal breath sounds, lungs clear, airway intact, No chest tenderness, No respiratory distress Cardiovascular/Chest Exam: normal heart sounds, regular rate/rhythm Abdominal/Gastrointestinal Exam: soft, normal bowel sounds, No tenderness Rectal Exam: not done Extremity Exam: non-tender, normal range of motion, normal inspection, normal capillary refill, no calf tenderness, no pedal edema, pelvis stable Neurologic Exam: alert, oriented x 3, 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, 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, normal mood/affect, nml cerebellar function, nml station & gait, sensation nml Skin Exam: normal color, warm, dry Lymphatic Exam: No adenopathy SpO2 Interpretation: normal SpO2: 97 O2 Delivery: Room Air - Course Nursing assessment & vital signs reviewed: Yes EKG Interpreted by Me: RATE ([id number]), Sinus Rhythm, NORMAL AXIS, NORMAL INTERVALS, NORMAL QRS, NORMAL ST-T, Other (No acute ischemic changes on today's twelve-lead EKG.) Ordered Tests: Active Orders 24 hr Category Date Time Status Case Repairer STAT Care 12/21/23 00:42 Active EKG-ER Only STAT Care 12/21/23 00:41 Active NPO (ED) STAT Care 12/21/23 00:41 Active Pulse Oximetry (ED) STAT Care 12/21/23 00:45 Active CHEST 1 VIEW (PORTABLE) Stat Exams 12/21/23 00:41 Taken CBC W DIFF Stat Lab 12/21/23 00:55 Completed CMP Stat Lab 12/21/23 00:55 Completed NT PRO BNPII Stat Lab 12/21/23 00:55 Completed TROPONIN Q4H Lab 12/21/23 00:55 Completed TROPONIN Q4H Lab 12/21/23 03:37 Completed TROPONIN Q4H Lab 12/21/23 08:45 Ordered Respiratory Therapy Assessment DAILY RT 12/21/23 01:48 Active Medication Summary Discontinued Medications Generic Name Dose Route Start Last Admin Trade Name Freq PRN Reason Stop Dose Admin Albuterol/Ipratropium 3 ml 12/21/23 01:42 12/21/23 01:44 Ipratropium/Albuterol Sulfate 3 Ml Ampul.Neb IH 12/21/23 01:43 3 ml STAT ONE Administration Albuterol/Ipratropium Confirm 12/21/23 01:43 Ipratropium/Albuterol Sulfate 3 Ml Ampul.Neb Administered 12/21/23 01:44 Dose 3 ml IH .STK-MED ONE Albuterol/Ipratropium 3 ml 12/21/23 01:47 12/21/23 01:52 Ipratropium/Albuterol Sulfate 3 Ml Ampul.Neb 12/21/23 01:48 Not Given STAT ONE Methylprednisolone Sodium 0 mg 12/21/23 00:45 12/21/23 00:48 Succinate 125 mg/ Sterile IV 12/21/23 00:46 125 mg Water 2 ml STAT ONE Administration Methylprednisolone Sodium Succinate Confirm 12/21/23 00:48 Methylprednis Sod Succ 125 Mg/2 Ml Vial Administered 12/21/23 00:49 Dose 125 mg .ROUTE .STK-MED ONE Sterile Water Confirm 12/21/23 00:48 Water For Injection,Sterile 10 Ml Vial Administered 12/21/23 00:49 Dose 10 ml IJ .STK-MED ONE Lab/Rad Data: Laboratory Result Diagrams 12/21/23 00:55 12/21/23 00:55 Laboratory Results 12/21/23 12/21/23 12/21/23 Range/Units 03:37 00:55 00:55 WBC (4.0-10.5) x10^3/uL RBC (4.1-5.6) x10^6/uL Hgb (12.5-18.0) g/dL Hct (42-50) % MCV (78-100) fL MCH (26-32) pg MCHC (32-36) g/dL RDW (11.5-14.0) % Plt Count (150-450) x10^3/uL MPV (7.5-11.0) fL Gran % (36.0-66.0) % Immature Gran % (Auto) (0.00-0.4) % Nucleat RBC Rel Count (0.00-0.1) % Eos # (Auto) (0-0.5) x10^3/uL Immature Gran # (Auto) (0.00-0.03) x10^3u/L Absolute Lymphs (auto) (1.0-4.6) x10^3/uL Absolute Monos (auto) (0.0-1.3) x10^3/uL Absolute Nucleated RBC (0.00-0.01) x10^3u/L Lymphocytes % (24.0-44.0) % Monocytes % (0.0-12.0) % Eosinophils % (0.00-5.0) % Basophils % (0.0-0.4) % Absolute Granulocytes (1.4-6.9) x10^3/uL Basophils # (0-0.4) x10^3/uL Sodium (137-145) mmol/L Potassium (3.5-5.1) mmol/L Chloride (98-107) mmol/L Carbon Dioxide (22-30) mmol/L Anion Gap (5-15) MEQ/L BUN (9-20) mg/dL Creatinine (0.66-1.25) mg/dL Estimated GFR ML/MIN Glucose (74-106) mg/dL Calcium (8.4-10.2) mg/dL Total Bilirubin (0.2-1.3) mg/dL AST (17-59) U/L ALT (0-50) U/L Alkaline Phosphatase (38-126) U/L Troponin I < 0.012 < 0.012 (0.000-0.034) ng/mL NT-Pro-B Natriuret Pep 401 (<300) pg/mL Serum Total Protein (6.3-8.2) g/dL Albumin (3.5-5.0) g/dL Influenza Type A Ag NEGATIVE (NEGATIVE) Influenza Type B Ag NEGATIVE (NEGATIVE) RSV (PCR) NEGATIVE (NEGATIVE) SARS-CoV-2 (PCR) NEGATIVE (NEGATIVE) 12/21/23 12/21/23 Range/Units 00:55 00:55 WBC 9.5 (4.0-10.5) x10^3/uL RBC 4.56 (4.1-5.6) x10^6/uL Hgb 14.0 (12.5-18.0) g/dL Hct 41.0 L (42-50) % MCV 89.9 (78-100) fL MCH 30.7 (26-32) pg MCHC 34.1 (32-36) g/dL RDW 13.5 (11.5-14.0) % Plt Count 258 (150-450) x10^3/uL MPV 9.6 (7.5-11.0) fL Gran % 53.1 (36.0-66.0) % Immature Gran % (Auto) 0.5 H (0.00-0.4) % Nucleat RBC Rel Count 0.0 (0.00-0.1) % Eos # (Auto) 0.22 (0-0.5) x10^3/uL Immature Gran # (Auto) 0.05 H (0.00-0.03) x10^3u/L Absolute Lymphs (auto) 3.37 (1.0-4.6) x10^3/uL Absolute Monos (auto) 0.74 (0.0-1.3) x10^3/uL Absolute Nucleated RBC 0.00 (0.00-0.01) x10^3u/L Lymphocytes % 35.5 (24.0-44.0) % Monocytes % 7.8 (0.0-12.0) % Eosinophils % 2.3 (0.00-5.0) % Basophils % 0.8 (0.0-0.4) % Absolute Granulocytes 5.02 (1.4-6.9) x10^3/uL Basophils # 0.08 (0-0.4) x10^3/uL Sodium 136 L (137-145) mmol/L Potassium 3.8 (3.5-5.1) mmol/L Chloride 101 (98-107) mmol/L Carbon Dioxide 30 (22-30) mmol/L Anion Gap 9.0 (5-15) MEQ/L BUN 13 (9-20) mg/dL Creatinine 1.28 H (0.66-1.25) mg/dL Estimated GFR 66.9 ML/MIN Glucose 95 (74-106) mg/dL Calcium 9.1 (8.4-10.2) mg/dL Total Bilirubin 0.50 (0.2-1.3) mg/dL AST 36 (17-59) U/L ALT 21 (0-50) U/L Alkaline Phosphatase 106 (38-126) U/L Troponin I (0.000-0.034) ng/mL NT-Pro-B Natriuret Pep (<300) pg/mL Serum Total Protein 7.4 (6.3-8.2) g/dL Albumin 4.0 (3.5-5.0) g/dL Influenza Type A Ag (NEGATIVE) Influenza Type B Ag (NEGATIVE) RSV (PCR) (NEGATIVE) SARS-CoV-2 (PCR) (NEGATIVE) - Progress Progress: improved, re-examined Air Movement: good Progress Note: 12/21/23 01:51 This patient's medical issue is 1 of moderate complexity. The level of complexity in the workup performed is based on review of the patient's past medical history, review of the patient's medication list, review the patient's drug allergy list, history of present illness and physical findings on examination. The workup in this patient includes placement of intravenous line, CBC, CMP, D-dimer level, troponin level, twelve-lead EKG, chest x-ray, respiratory therapy evaluation, DuoNeb treatment, infusion of 125 mg intravenous Solu-Medrol. 12/21/23 04:35 I interpreted the patient's laboratory data results. There is no evidence of acute or emergent medical issue based on the labs. I interpreted the patient's chest x-ray. There is no evidence of any acute cardiopulmonary process. This chest x-ray today was compared to that chest x- ray that was performed on 08/17/2022 and there are no changes. Blood Culture(s) Obtained: Yes Counseled pt/family regarding: lab results, diagnosis, need for follow-up, rad results Medical Desision Making - Independent Historian Additional History obtained from: Family - Diagnostic Testing Diagnostic test were ordered, analyzed, and reviewed by me: Yes Radiological Interpretation: Interpreted by me - Risk of complications The pt has a mod risk of morbidity or mortality based on: Need for prescription drug management - Departure Departure Disposition: Home Clinical Impression: COPD exacerbation Condition: Stable Critical Care Time: No Referrals: BARRINGTON AYERS MD [Primary Care Provider] - Follow up/PCP as directed Instructions: Chronic Obstructive Pulmonary Disease Additional Instructions: Drink plenty of fluids. Avoid exposure to any type of smoke. Take your medications as prescribed. Call your primary care provider on 12/23/2023 to make arranges for follow-up appointment next 3 to 5 days Prescriptions: Prednisone 10 mg [Deltasone 10 mg] 10 mg PO TID #12 tablet Albuterol 8 gm Mdi Hfa [Ventolin Hfa MDI] 8 gm IH Q4H #1 unit
[2023-12-21] MEDS ORDERED: Sterile H2O 10 ml IJ ONE (00:48)
[2023-12-21] MEDS ORDERED: solu-MEDROL ONE (00:48)
[2023-12-21] MEDS: solu-MEDROL 125 MG, Sterile H2O 10 ml 2 ML IV ONE (00:48)
[2023-12-21 01:00] LABS: Absolute Neutrophil Ct (ANC) 5.02 x10^3/uL (1.4-6.9); BASOPHIL % 0.8 % (0.0-0.4); Basophil (Absolute #) 0.08 x10^3/uL (0-0.4); Eosinophil % 2.3 % (0.00-5.0); Eosinophil (Absolute #) 0.22 x10^3/uL (0-0.5); IMMATURE GRAN # 0.05 x10^3u/L (0.00-0.03); IMMATURE GRAN % 0.5 % (0.00-0.4); Lymphocyte (Absolute #) 3.37 x10^3/uL (1.0-4.6); Lymphocytes % 35.5 % (24.0-44.0); Mean Cell Volume 89.9 fL (78-100); Mean Corpuscular Hemoglobin 30.7 pg (26-32); Mean Corpuscular Hgb Concent. 34.1 g/dL (32-36); Mean Platelet Volume 9.6 fL (7.5-11.0); Monocyte (Absolute #) 0.74 x10^3/uL (0.0-1.3); Monocytes % 7.8 % (0.0-12.0); Neutrophil % 53.1 % (36.0-66.0); Platelet Count 258 x10^3/uL (150-450); Red Blood Count 4.56 x10^6/uL (4.1-5.6); Red Cell Distribution Width 13.5 % (11.5-14.0); White Blood Count 9.5 x10^3/uL (4.0-10.5)
[2023-12-21 01:11] LABS: BILIRUBIN,TOTAL 0.5 mg/dL (0.2-1.3); Calcium 9.1 mg/dL (8.4-10.2); Creatinine 1 1.28 mg/dL (0.66-1.25); EST GLOMERULAR FILTRATION RATE 66.9 ML/MIN; Potassium 3.8 mmol/L (3.5-5.1); Total Protein 7.4 g/dL (6.3-8.2)
[2023-12-21 01:23] LABS: NT PRO BNPII 401 pg/mL (<300); TROPONIN < 0.012 ng/mL (0.000-0.034)
[2023-12-21 01:32] LABS: INFLUENZA A NEGATIVE (NEGATIVE); INFLUENZA B NEGATIVE (NEGATIVE); RESPIRATORY SYNCTIAL VIRUS NEGATIVE (NEGATIVE); SARS-CoV-2 Xpert Express NEGATIVE (NEGATIVE)
[2023-12-21] MEDS ORDERED: DUONEB 0.5-3 MG/3 ml Neb IH ONE (01:43)
[2023-12-21] MEDS: DUONEB 0.5-3 MG/3 ml Neb IH ONE ×2 (01:44→01:52)
[2023-12-21 01:51] VITALS: O2SAT 97
[2023-12-21 04:08] VITALS: RESP 17
[2023-12-21 04:39] VITALS: BP 141/79; PULSE 77
--- NOTE | 2023-12-21 08:12 | XRAY ---
Indication: Short of breath. Comparison: August 17, 2022 Portable chest again demonstrates normal heart and lungs. Bony thorax intact again with mild degenerative changes. No new/acute findings.
== END 2023-12-21 04:45 | disposition home or self-care (01) ==
LOC: ED 00:23
DX: J44.1 Chronic obstructive pulmonary disease with (acute) exacerbation (principal); R06.02 Shortness of breath; E78.5 Hyperlipidemia, unspecified; I10 Essential (primary) hypertension; Z79.02 Long term (current) use of antithrombotics/antiplatelets; Z79.899 Other long term (current) drug therapy; Z72.0 Tobacco use; Z20.828 Contact with and (suspected) exposure to other viral communicable diseases
CPT/HCPCS: 0241U; 36000; 36415; 71045; 80053; 83880; 84484; 85025; 93005; 93041; 94640; 94760; 96374; 99284; J2930; A9270-GY

== ENCOUNTER 2025-02-05 15:26 | Emergency (ER) | payer MEDICARE ==
[2025-02-05 15:45] VITALS: BP 138/79; PULSE 86; RESP 17; TEMP 97.7; O2SAT 98
--- NOTE | 2025-02-05 15:49 | ERPHSYRPT ---
- History of Present Illness Time Seen by Provider: 02/05/25 15:49 Source: patient, family Exam Limitations: no limitations Patient Subjective Stated Complaint: States had a nose bleed on Saturday and had to have a rhino rocket placed in his right nare. Was supposed to have it removed after 48 hours but his primary care provider is out of town. Triage Nursing Assessment: Patient ambulated back to ER. He is alert and oriented. No SOB. NO active bleeding. Rhino rocket in place in right nare. Physician History: This is a 54-year-old white male patient who on 02/02/2025, patient had a right nostril Rhino Rocket placed and was told to have it removed in 48 hours. His primary care provider, Dr. Ayers, is out of town. He wants the Rhino Rocket removed. There is been no further bleeding. Patient has a history of g astroesophageal reflux disease, depression, hypertension and hyperlipidemia. He is on anticoagulation therapy. ENT Location: nose (Nostril) Prearrival Treatment: no prearrival treatment Modifying Factors: Improves With: nothing Associated Symptoms: denies symptoms Allergies/Adverse Reactions: bee venom protein (honey bee) Allergy (Verified 02/05/25 15:37) Swelling Influenza Virus Vaccines Allergy (Verified 02/05/25 15:37) [place] nuts Allergy (Uncoded 02/05/25 15:37) Home Medications: Budesonide/Formoterol Fumarate [Symbicort 160-4.5 Mcg Inhaler] 10.2 gm IH BID 02/22/17 [History] Fluticasone/Vilanterol [Breo Ellipta 100-25 Mcg INH] 1 each IH DAILY 02/22/17 [History] Gabapentin 800 mg PO TID 05/13/17 [History] Aspirin 81 mg PO DAILY 07/29/17 [History] Atorvastatin Calcium 80 mg PO DAILY 07/29/17 [History] Carvedilol 3.125 mg [Coreg 3.125 MG] 3.125 mg PO BID 07/29/17 [History] Clopidogrel Bisulfate [Clopidogrel] 75 mg PO DAILY 03/14/23 [History] Isosorbide Mononitrate [Isosorbide Mononitrate ER] 30 mg PO DAILY 03/14/23 [History] Misoprostol [Cytotec] 200 mcg PO HS 03/14/23 [History] Oxaprozin [Daypro] 600 mg PO DAILY 03/14/23 [History] Pantoprazole Sodium [Protonix] 40 mg PO DAILY 03/14/23 [History] Propranolol HCl [Propranolol HCl ER] 80 mg PO DAILY 03/14/23 [History] Sertraline HCl [Zoloft] 100 mg PO DAILY 12/21/23 [History] Hx Tetanus, Diphtheria Vaccination/Date Given: Yes Hx Influenza Vaccination/Date Given: No Hx Pneumococcal Vaccination/Date Given: No Immunizations Up to Date: Yes Travel Risk - International Travel Have you traveled outside of the country in past 3 weeks: No - Emerging Infectious Disease Are you exhibiting symptoms associated with any current EIDs: No - Review of Systems Constitutional: No Symptoms Eyes: No Symptoms Ears, Nose, & Throat: Other (Right side Rhino Rocket. No active bleeding. No dried blood) Respiratory: No Symptoms Cardiac: No Symptoms Abdominal/Gastrointestinal: No Symptoms Genitourinary Symptoms: No Symptoms Musculoskeletal: No Symptoms Skin: No Symptoms Neurological: No Symptoms Psychological: No Symptoms Endocrine: No Symptoms Hematologic/Lymphatic: No Symptoms Immunological/Allergic: No Symptoms All Other Systems: Reviewed and Negative - Past Medical History Pertinent Past Medical History: Yes Neurological History: No Pertinent History ENT History: No Pertinent History Cardiac History: High Cholesterol, Hypertension, Myocardial Infarction ([place]) Respiratory History: No Pertinent History Endocrine Medical History: No Pertinent History Musculoskeletal History: Arthritis, Fibromyalgia GI Medical History: GERD History: No Pertinent History Psycho-Social History: Depression Male Reproductive Disorders: No Pertinent History - Past Surgical History Past Surgical History: Yes Cardiac: Cardiac Catheterization, Cardiac Stent Other Surgical History: I and D's from cysts on posterior torso. Significant Family History: no pertinent family hx - Social History Smoking Status: Current every day smoker How long have you smoked: 25 Exposure to second hand smoke: No Drug Use: none - Social Determinants of Health Will the patient participate in the screening: Declined to provide - Nursing Vital Signs Nursing Vital Signs: Initial Vital Signs Temperature 97.7 F 02/05/25 15:38 Pulse Rate 86 02/05/25 15:38 Respiratory Rate 17 02/05/25 15:38 Blood Pressure 138/79 02/05/25 15:38 O2 Sat by Pulse Oximetry 98 02/05/25 15:38 Pain Scale Pain Intensity 0 - Physical Exam General Appearance: no apparent distress, alert Eye Exam: bilateral eye: normal inspection, PERRL, EOMI Ear Exam: bilateral ear: auricle normal Nasal Exam: foreign body (Right Rhino Rocket in place) Throat Exam: normal, pharynx normal (No pharyngeal clotted blood or any evidence of bleeding), moist mucus membranes Neck Exam: normal inspection, non-tender, supple, full range of motion Cardiovascular/Respiratory Exam: chest non-tender, no respiratory distress Abdominal Exam: non-tender Neurologic Exam: alert, oriented x 3, 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, 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 The workup does not require any radiographic or laboratory studies. Differential diagnosis includes but is not limited to removal of Rhino Rocket, persistent right nostril epistaxis Procedure note: The Rhino Rocket was removed after removing the balloon of fluid. This decompressed the Rhino Rocket and in 1 motion the Rhino Rocket there was within the right nostril was removed readily without complications. No evidence of any acute bleeding present. Using an otoscope light we looked into the right nostril and there is no evidence of blood clot or bleeding. Medical Desision Making - Diagnostic Testing Diagnostic test were ordered, analyzed, and reviewed by me: No - Risk of complications Low Risk: Low risk of morbidity from additional dx testing or treatment - Departure Departure Disposition: Home Clinical Impression: Encounter for removal of nasal packing Condition: Stable Critical Care Time: No Referrals: BARRINGTON AYERS MD [Primary Care Provider] - Follow up/PCP as directed Additional Instructions: Try not to blow your nose for 24 hours. Hold your anticoagulation therapy for 24 hours. May restart your anticoagulant therapy after 24 hours. If you have recurrent bleeding, proceed to the nearest emergency department as discussed. You may always come to our emergency department. Recall, that we do not have ear nose and throat specialty at our facility. There are lead nuclear medicine technologist at [facility] in [facility].
== END 2025-02-05 17:19 | disposition home or self-care (01) ==
LOC: ED 15:26
DX: Z48.00 Encounter for change or removal of nonsurgical wound dressing (principal); I10 Essential (primary) hypertension; E78.5 Hyperlipidemia, unspecified; Z79.02 Long term (current) use of antithrombotics/antiplatelets; Z79.899 Other long term (current) drug therapy; Z72.0 Tobacco use
CPT/HCPCS: 99282